=== PATIENT | female | born 1975 | race Caucasian/White ===

== ENCOUNTER → 2016-07-23 | Outpatient (CLI) | payer BC ==
[2016-07-23 09:02] LABS: Basophils % (A) 0 %; CH 30.5; CHCM 33.8; Eosinophils # (A) 0.2 k/uL (0-0.7); Eosinophils % (A) 3 %; HCT 42.4 % (34.0-46.0); HDW 2.64; HGB 14.1 gm/dL (11.4-16.0); Luc # (Auto) 0.21; Luc % (Auto) 3; Lymphocytes # (A) 1.7 k/uL (1.0-4.8); Lymphocytes % (A) 24 %; MCH 30.2 pg (25.0-35.0); MCHC 33.2 g/dL (31.0-37.0); MCV 90.9 fL (80.0-100.0); Mean Platelet Volume 7.4; Monocytes # (A) 0.3 k/uL (0-1.0); Monocytes % (A) 5 %; Neutrophils # (A) 4.7 k/uL (1.3-7.7); Neutrophils % (A) 65 %; RBC 4.67 m/uL (3.80-5.40); RDW 13.6 % (11.5-15.5); WBC 7.2 k/uL (3.8-10.6); WBC (Perox) 7.15
[2016-07-23 10:46] LABS: ALT 38 U/L (9-52); AST 24 U/L (14-36); Alkaline Phosphatase 81 U/L (38-126); Anion Gap 11 mmol/L; Blood Urea Nitrogen 14 mg/dL (7-17); Calcium 9.6 mg/dL (8.4-10.2); Carbon Dioxide 26 mmol/L (22-30); Chloride 105 mmol/L (98-107); Cholesterol 144 mg/dL (<200); Glucose 123 mg/dL (74-99); HDL Cholesterol 54 mg/dL (40-60); Non-African American GFR(MDRD) >60 (>60 ml/min/1.73 sqM); Potassium 4.5 mmol/L (3.5-5.1); Sodium 142 mmol/L (137-145); Total Bilirubin 0.8 mg/dL (0.2-1.3); Total Protein 7.5 g/dL (6.3-8.2); Triglycerides 132 mg/dL (<150)
== END | disposition home or self-care (01) ==
LOC: LABWHC1 08:34
PROVIDERS: ATTEND Physician Assistant Medical
DX: R45.4 Irritability and anger (principal); R07.9 Chest pain, unspecified; R06.00 Dyspnea, unspecified; N94.3 Premenstrual tension syndrome
CPT/HCPCS: 36415; 80053; 80061; 84439; 84443; 85025

== ENCOUNTER → 2016-08-06 | Outpatient (CLI) | payer BC ==
--- NOTE | 2016-08-07 11:19 | ECHOF ---
Referral Reason:R07.9 chest pain R06.00 dyspnea MEASUREMENTS -------- HEIGHT: 175.3 cm WEIGHT: 148.8 kg BP: 134/103 RVIDd: 2.7 cm (< 3.3) IVSd: 1.2 cm (0.6 - 1.1) LVIDd: 3.9 cm (3.9 - 5.3) LVPWd: 1.2 cm (0.6 - 1.1) IVSs: 1.7 cm LVIDs: 2.8 cm LVPWs: 1.6 cm LA Diam: 3.4 cm (2.7 - 3.8) LAESV Index (A-L): 21.70 ml/m Ao Diam: 3.1 cm (2.0 - 3.7) AV Cusp: 2.1 cm (1.5 - 2.6) MV EXCURSION: 14.967 mm (> 18.000) MV EF SLOPE: 46 mm/s (70 - 150) EPSS: 0.4 cm MV E Willam: 1.06 m/s MV DecT: 217 ms MV A Willam: 0.71 m/s MV E/A Ratio: 1.50 RAP: 5.00 mmHg RVSP: 23.28 mmHg FINDINGS -------- Sinus rhythm. This was a technically adequate study. The left ventricular size is normal. There is borderline concentric left ventricular hypertrophy. Overall left ventricular systolic function is normal with, an EF between 60 - 65 %. The right ventricle is normal in size. Normal LA size by volume 22+/-6 ml/m2. The right atrium is normal in size. The aortic valve is trileaflet and appears structurally normal. The mitral valve is normal. Mild tricuspid regurgitation present. Right ventricular systolic pressure is normal at < 35 mmHg. The pulmonic valve was not well visualized. The aortic root size is normal. Normal inferior vena cava with normal inspiratory collapse consistent with estimated right atrial pressure of 5 mmHg. The pericardium is normal. CONCLUSIONS -------- 1. Sinus rhythm. 2. Mild tricuspid regurgitation present. 3. Right ventricular systolic pressure is normal at < 35 mmHg. 4. The pulmonic valve was not well visualized. 5. The aortic root size is normal. 6. Normal inferior vena cava with normal inspiratory collapse consistent with estimated right atrial pressure of 5 mmHg. 7. The pericardium is normal. 8. This was a technically adequate study. 9. The left ventricular size is normal. 10. There is borderline concentric left ventricular hypertrophy. 11. Overall left ventricular systolic function is normal with, an EF between 60 - 65 %. 12. The right ventricle is normal in size. 13. Normal LA size by volume 22+/-6 ml/m2. 14. The aortic valve is trileaflet and appears structurally normal. 15. The mitral valve is normal. [employer] ARCHITECT: Isa Fields RDCS
--- NOTE | 2016-08-07 12:23 | EST ---
DATE OF SERVICE: 08/07/2016 AGE: 40Y SEX: F HT: 69" WT: 328 lbs. Protocol Johnny: X Other: Stress Stage: 1 Dur. of Exercise: 4:08 *Heart Rate Blood Pressure *Rest: 77 Rest: 134/103 * *Max. Achieved: 158 Maximum BP: 168/98 85% PMHR: 153 100% PMHR: 180 *METS: 5.6 INDICATIONS: Chest pain. MEDICATIONS: Prozac. Patient was exercised for a total period of 4 minutes. A peak heart rate of 158 was achieved. Maximum blood pressure of 168/98 mmHg was noted. Resting EKG shows normal sinus rhythm with normal PA interval and QRS duration and normal ST-T waves. No ST segment depression suggestive of ischemia is noted. The patient did not complain of any chest pain during the test. FINAL IMPRESSION: 1. This exercise test is not suggestive of ischemia. 2. Patient's exercise tolerance is below average. 3. No dysrhythmias are noted.
== END | disposition home or self-care (01) ==
LOC: RADNMMAIN 10:58
PROVIDERS: ATTEND Family Medicine
DX: I07.1 Rheumatic tricuspid insufficiency (principal); R06.00 Dyspnea, unspecified
CPT/HCPCS: 93017; 93306

== ENCOUNTER → 2019-12-16 | Outpatient (CLI) | payer BC ==
[2019-12-16 12:11] LABS: Basophils % (A) 0 %; Eosinophils # (A) 0.3 k/uL (0-0.7); Eosinophils % (A) 3 %; HCT 42.6 % (34.0-46.0); HGB 13.6 gm/dL (11.4-16.0); Lymphocytes % (A) 26 %; MCH 28.4 pg (25.0-35.0); MCHC 31.9 g/dL (31.0-37.0); MCV 89.2 fL (80.0-100.0); Mean Platelet Volume 8.4; Monocytes # (A) 0.3 k/uL (0-1.0); Monocytes % (A) 4 %; Neutrophils # (A) 4.9 k/uL (1.3-7.7); Neutrophils % (A) 64 %; Platelet Count 299 k/uL (150-450); RBC 4.78 m/uL (3.80-5.40); RDW 14.1 % (11.5-15.5); WBC 7.6 k/uL (3.8-10.6)
== END | disposition home or self-care (01) ==
LOC: LABPAT 09:12
PROVIDERS: ATTEND Obstetrics & Gynecology
DX: Z01.818 Encounter for other preprocedural examination (principal); N92.0 Excessive and frequent menstruation with regular cycle
CPT/HCPCS: 36415; 85025

== ENCOUNTER 2019-12-21 08:48 | Day surgery (SDC) | payer BC ==
[2019-12-16 13:37] VITALS: BMI 46.2
[~2019-12-21 08:48] MED LIST: DEXAMETHASONE SOD PHOSPHATE 10 MG/ML 1 ML VIAL IV ONE; HYDROmorphone 0.5 MG/0.5 ML SYRINGE IVP PRN; MIDAZOLAM 2 MG/2 ML VIAL IV PRN; ONDANSETRON 4 MG/2 ML VIAL IVP ONE; Pre Op ABX Message 1 EACH MISC MISCELLANE ONE; SCOPOLAMINE 1.5MG/72HR PATCH TRANSDERM ONE
[2019-12-21] MEDS: LACTATED RINGERS 1,000 ML IV SCH ×2 (09:32→10:05)
[2019-12-21] MEDS ORDERED: LIDOCAINE 1% (10MG/ML) FOR IV START INTRADERMA ONE (09:33)
[2019-12-21] MEDS ORDERED: PROPOFOL 10 MG/ML 20 ML VIAL IV ONE (10:07)
[2019-12-21] MEDS ORDERED: LIDOCAINE 1% INJ 10MG/ML (20 ML MDV) ONE (10:07)
[2019-12-21] MEDS ORDERED: KETOROLAC 15 MG/ML 1 ML VIAL ONE (10:07)
[2019-12-21] MEDS ORDERED: fentaNYL (PF) 50 MCG/ML 2 ML AMP ONE (10:07)
[2019-12-21] MEDS ORDERED: MIDAZOLAM 2 MG/2 ML VIAL ONE (10:07)
[2019-12-21] MEDS ORDERED: LIDOCAINE 1%-EPI 1:100,000 20 ML VIAL SUBMUCOSAL ONE ×2 (10:28)
--- NOTE | 2019-12-21 10:50 | P.OP ---
Date of Procedure: 12/21/19 Preoperative Diagnosis: menometrorrhagia Postoperative Diagnosis: menometrorrhagia Procedure(s) Performed: diagnostic hysteroscopy and NovaSure endometrial ablation Anesthesia: MAC Surgeon: Mercy Haas Estimated Blood Loss (ml): 5 IV fluids (ml): 350 Urine output (ml): 100 Condition: stable Disposition: PACU Operative Findings: large nabothian cyst on anterior of the cervix. Exam under anesthetic limited secondary to the patient's body habitus. Hysteroscopy preprocedure was obscured secondary to clot in the uterus. Postprocedure there was majority desiccation of the endometrium however there were areas of the fundus that appeared still vascularized. Procedure is technically difficult secondary to soft tissue dystocia limiting visualization, instrument uterus and angulation. Description of Procedure: after the patient and her were met in the preoperative holding area and all questions were answered, she was taken to the operating room where anesthetic was administered without incident. She was in positioned, prepped and draped in the dorsal high lithotomy position. Bladder was drained for approximately 100 mL of clear urine. Exam under anesthetic was undertaken and the uterus was not readily palpable secondary to body habitus. Single-sided speculum was placed in the vagina however this did not allow for adequate visualization of the cervix. Weighted speculum was then placed and the cervix is visualized. It was grasped anteriorly with a single-tooth tenaculum and a paracervical block with lidocaine plus epinephrine was placed. Of note there was significant soft tissue in the surgical field including large rectocele redundant vulva and overall body habitus. The uterus was sounded to 11 cm and was anteverted. The cervix was sequentially dilated with Hegar dilators to allow for passage of the diagnostic hysteroscope. The hysteroscope was introduced however was difficult visualization secondary to clot and debris and the uterus as well as soft tissue dystocia preventing the anterior angulation of the rigid scope. Visualization was felt to be adequate enough however to proceed with the NovaSure procedure. Hysteroscope was removed and the cervix was further dilated to allow for passage of the NovaSure ablation device. The device was seated with a cavity length of 6.0 cm width of 3.8 cm. Cavity assessment test was passed. Cycle was enabled with a power of 125 W for a cycle time of 60 seconds. Following cessation of the treatment cycle the device was removed. Hysteroscope was reintroduced. There was better visualization however again angulation was difficult secondary to soft tissue. It did appear as though there was the majority desiccated however some areas at the fundus still looked vascular. I do not believe it was possible to reach these areas with the device based on above technical issues discussed. The hysteroscope was then removed and the cervix was observed and no active bleeding was noted instruments removed from the vagina. Patient was awoken from anesthetic without incident and transported recovery area in good condition. All counts reported to me as correct by the operating room staff.
[2019-12-21 11:16] VITALS: TEMP 98
[2019-12-21 11:18] VITALS: RESP 16
[2019-12-21 12:03] VITALS: BP 123/80; PULSE 77
== END 2019-12-21 12:25 | disposition home or self-care (01) ==
LOC: OR 08:48
PROVIDERS: ATTEND Obstetrics & Gynecology
DX: N92.1 Excessive and frequent menstruation with irregular cycle (principal); D25.9 Leiomyoma of uterus, unspecified; E66.9 Obesity, unspecified; K21.9 Gastro-esophageal reflux disease without esophagitis; M19.90 Unspecified osteoarthritis, unspecified site; Z88.0 Allergy status to penicillin; Z88.7 Allergy status to serum and vaccine; Z82.49 Family history of ischemic heart disease and other diseases of the circulatory system; Z68.42 Body mass index [BMI] 45.0-49.9, adult
CPT/HCPCS: 58563; 81025; J2250; J1100; J2405; J2001; J3010; J1885; J2704; J1170

== ENCOUNTER → 2020-05-22 | Outpatient (CLI) | payer BC ==
--- NOTE | 2020-05-22 15:04 | MM ---
Reason for exam: screening (asymptomatic). Last mammogram was performed 4 years and 10 months ago. History: Benign MG stereo VAD BX LT of the left breast, June 14, 2014. US biopsy breast VAD LT of the left breast, November 02, 2013. Physical Findings: A clinical breast exam by your physician is recommended on an annual basis and results should be correlated with mammographic findings. MG Screening Mammo w CAD Bilateral CC and MLO view(s) were taken. Prior study comparison: July 19, 2015, bilateral MG 3d diag mammo w/cad [facility]. December 07, 2014, left breast MG diagnostic mammo LT w CAD. There are scattered fibroglandular densities. Finding: There is a 10 mm obscured mass in the middle, central position of the right breast CC view only. Previous mammotome biopsy in the left breast x 3. There is a chronic nodularity in the left breast. ASSESSMENT: Incomplete: need additional imaging evaluation, BI-RAD 0 RECOMMENDATION: Special view mammogram of the right breast. If lesion persists on supplemental views, image directed ultrasound is recommended. [facility] will attempt to contact patient to return for supplemental views and ultrasound if indicated.
== END | disposition home or self-care (01) ==
LOC: RADMAMWWP 09:25
PROVIDERS: ATTEND Family Medicine
DX: Z12.31 Encounter for screening mammogram for malignant neoplasm of breast (principal)
CPT/HCPCS: 77067

== ENCOUNTER → 2020-05-31 | Outpatient (CLI) | payer BC ==
--- NOTE | 2020-05-31 13:32 | MM ---
Reason for exam: additional evaluation requested from abnormal screening. Last mammogram was performed less than 1 month ago. History: Benign MG stereo VAD BX LT of the left breast, June 14, 2014. US biopsy breast VAD LT of the left breast, November 02, 2013. Physical Findings: Nurse did not find any significant physical abnormalities on exam. MG 3D Work Up W/Cad RT CC and MLO view(s) were taken of the right breast. Prior study comparison: May 22, 2020, bilateral MG screening mammo w CAD. July 19, 2015, bilateral MG 3d diag mammo w/cad [facility]. Finding: There is a 6 mm equal density (isodense), circumscribed oval mass located 8 cm from the nipple in the 12 o'clock middle position of the right breast. New finding since July 19, 2015 and May 22, 2020. These results were verbally communicated with the patient and result sheet given to the patient on 05/31/20. ASSESSMENT: Incomplete: need additional imaging evaluation, BI-RAD 0 RECOMMENDATION: Ultrasound of the right breast.
--- NOTE | 2020-05-31 13:35 | USB ---
Reason for exam: additional evaluation requested from abnormal screening. History: Benign MG stereo VAD BX LT of the left breast, June 14, 2014. US biopsy breast VAD LT of the left breast, November 02, 2013. US Breast Workup Limited RT Right limited breast ultrasound including focal area of concern, retroareolar and axilla demonstrates a 0.7 x 0.7 x 0.6cm oval, hypoechoic lesion at 12 o'clock. These results were verbally communicated with the patient and result sheet given to the patient on 05/31/20. ASSESSMENT: Suspicious, BI-RAD 4 RECOMMENDATION: Ultrasound core biopsy of the right breast. (12 o'clock, stereotactic core biopsy if not seen on follow up ultrasound) Called Dr. Lozano's office with mammographic findings and has scheduled an appointment for the patient for 06/16/20 at 11:[address] Gilliam. Biopsy scheduled for 06/21/20 at 10:30. PRELIMINARY REPORT CALLED AND FAXED TO DR. GILLIAM ON 05/31/20.
== END | disposition home or self-care (01) ==
LOC: RADMAMWWP 10:20
PROVIDERS: ATTEND Family Medicine
DX: R92.8 Other abnormal and inconclusive findings on diagnostic imaging of breast (principal)
CPT/HCPCS: 77061; 77065

== ENCOUNTER → 2020-06-16 | Outpatient (CLI) | payer BC ==
[2020-06-16 11:11] VITALS: BP 163/97; PULSE 85; RESP 18; TEMP 98.1
--- NOTE | 2020-06-16 11:35 | P.GSHP ---
History of Present Illness H&P Date: 06/16/20 Chief Complaint: abnormal ultrasound of the right breast Tiny is a 44 year old white female seen in consultation for Dr. Fatoumata Chavez regarding an ultrasound abnormality of the left breast. She had a bilateral mammogram performed on 3820. Last mammogram prior to this was 10 years ago. This most recent mammogram revealed a 10 mm isodense mass in the middle central position of the right breast. The patient had had a previous Mammotome biopsy in the left breast 2 which was always benign. She had recommendation for a diagnostic right breast mammogram. This was performed on . This revealed a 6 mm isodense mass located in the 12 o'clock position of the right breast. An ultrasound was recommended. An ultrasound was performed on the same date and the lesion was seen on ultrasound. Recommendation was for ultrasound-guided core biopsy of the right breast. Tiny does not feel any lumps masses or nodules in either breast. These were findings on a routine mammogram. She is not complaining of any pain in the breast. She is not complaining of any nipple discharge or skin changes. She has had stereotactic core biopsy twice of the left breast which was benign. It is not complaining of any pain in her breast. She has not had any recent trauma or infection in her breast. Caffeine: 2 cups coffe/day; 2 cans of pop/day nicotine: none chocolate: none Family history: none Hormonal History: menarche: 13 , breast fed: no, age at first : 17 periods regular: last period June 13 BCP: none Surgical History: hip two knee scopes uterine ablation Medical History: none Social History: nicotine: none alcohol: occasional drugs: none - Constitutional Constitutional: Reports sweats - EENT Eyes: denies blurred vision, denies pain Ears: deny: decreased hearing, tinnitus Ears, nose, mouth and throat: Denies headache, Denies sore throat - Breasts Breasts: bilateral: as per HPI - Cardiovascular Cardiovascular: Denies chest pain, Denies shortness of breath - Respiratory Respiratory: Denies cough, Denies 7 - Gastrointestinal Gastrointestinal: Denies abdominal pain, Denies diarrhea, Denies nausea, Denies vomiting - Genitourinary (Female) Genitourinary: Denies dysuria, Denies hematuria - Menstruation Menstruation: Reports period normal - Musculoskeletal Musculoskeletal: Reports myalgias - Integumentary Integumentary: Denies pruritus, Denies rash - Neurological Neurological: Denies numbness, Denies weakness - Psychiatric Psychiatric: Denies anxiety, Denies depression - Endocrine Endocrine: Denies fatigue, Denies weight change - Hematologic/Lymphatic Comment: none - Allergic/Immunologic Allergic/Immunologic: Reports as per HPI Past Medical History History of Any Multi-Drug Resistant Organisms: None Reported Smoking Status: Never smoker Medications and Allergies Home Medications Medication Instructions Recorded Confirmed Type Ascorbic Acid [Vitamin C] 500 mg PO DAILY 06/16/20 06/16/20 History Allergies Allergy/AdvReac Type Severity Reaction Status Date / Time Penicillins Allergy Rash/Hives Verified 06/16/20 11:07 Tetanus Vaccines and Toxoid Allergy Swelling Verified 06/16/20 11:07 Surgical - Exam Vital Signs Temp Pulse Resp BP Pulse Ox 98.1 F 85 18 163/97 100 06/16/20 11:08 06/16/20 11:08 06/16/20 11:08 06/16/20 11:08 06/16/20 11:08 BMI 52.3 - General well developed, well nourished, no distress - Eyes normal ocular movement - ENT normal pinna, normal nares - Neck no masses, trachea midline - Respiratory normal respiratory effort, clear to auscultation - Cardiovascular Rhythm: regular Heart Sounds: normal: S1, S2 - Abdomen Abdomen: soft, non tender, no guarding, no rigid, no rebound - Integumentary normal turgor - Neurologic no disoriented, no combative - Musculoskeletal normal gait, normal posture - Psychiatric oriented to time, oriented to person, oriented to place, speech is normal, memory intact breast exam: BRA: 42B inspection: grade 3 ptosis bilateral Palpation: Right breast: Multi-positional exam fibrocystic changes no dominant masses or nodules of concern, right breast slightly larger than left breast Right axilla: No adenopathy of concern Left breast: Multiple positional exam fibrocystic changes, no dominant masses or nodules of concern Left axilla: No adenopathy of concern Results Mammogram and ultrasound results reviewed independently with radiology Assessment and Plan Assessment: Impression: 1. Radiographic abnormality right breast/ultrasound revealing 0.7 x 0.7 cm lesion at 12:00 2. Fibrocystic breast changes 3. Slight asymmetry of the breast 4. Caffeine intake discussed with the patient she will consider modification of her lifestyle Plan: 1. Ultrasound-guided core biopsy of the right breast 2. Follow-up after ultrasound-guided core biopsy 3. Patient is going to consider decrease caffeine intake Risks and benefits of the procedure discussed with the patient she understands and wishes to proceed risk include but are not limited to bleeding, infection, reaction to the anesthetic. Additionally there is a possibility that the lesion could be metastatic could be discordant in which case it might be recommended that an open biopsy be performed. Cc: Dr. Fatoumata Chavez
== END ==
LOC: WWCWWP 11:01
PROVIDERS: ATTEND Surgery
DX: N60.11 Diffuse cystic mastopathy of right breast (principal); N60.12 Diffuse cystic mastopathy of left breast

== ENCOUNTER → 2020-06-21 | Day surgery (SDC) | payer BC ==
[2020-06-21 10:09] VITALS: BP 135/82; RESP 12; TEMP 98.5
--- NOTE | 2020-06-21 11:38 | USB ---
Discontinued core biopsy right breast HISTORY: Previous abnormal The region questioned at the right 12:00 position zone B-C was attempted to be localized sonographica lly. Sonographically the area of interest was very difficult to visualize and identified much better on mammography. Therefore ultrasound-guided core biopsy was discontinued. Recommendation is for stere otactic core biopsy of the right breast lesion. This was discussed with the patient. IMPRESSION: Suspicious abnormality BI-RADS 4 Recommendation: Stereotactic core biopsy right breast
== END ==
LOC: RADUSWWP 09:44
PROVIDERS: ATTEND Surgery
DX: R92.8 Other abnormal and inconclusive findings on diagnostic imaging of breast (principal); Z53.9 Procedure and treatment not carried out, unspecified reason

== ENCOUNTER → 2020-08-03 | Outpatient (CLI) | payer BC ==
[2020-08-03 08:46] VITALS: BP 134/101; PULSE 73; RESP 18; TEMP 98
--- NOTE | 2020-08-03 09:21 | P.PN ---
Subjective Progress Note Date: 08/03/20 Principal diagnosis: stero biopsy results Tiny is a 44 year old white female status post stereotactic core biopsy done at [facility] [place] [id number]. Pathology revealed this tissue with fibrocystic and fibroadenomatoid change with areas of myxoid stroma and fibrous stroma. The films were reviewed with Dr. Romo from radiology. It is felt that the area of concern was most likely sampled and that this is benign specific. The patient tolerated the procedure with no difficulty. Objective - Vital Signs Vital signs: Vital Signs Temp 98.0 F 08/03/20 08:40 Pulse 73 08/03/20 08:40 Resp 18 08/03/20 08:40 BP 134/101 08/03/20 08:40 Pulse Ox 98 08/03/20 08:40 Intake & Output 08/02/20 08/03/20 08/03/20 18:59 06:59 18:59 Weight 146.964 kg - Constitutional General appearance: Present: morbidly obese - EENT Eyes: Present: EOMI ENT: Present: hearing grossly normal - Neck Neck: Present: normal ROM - Respiratory Respiratory: bilateral: CTA - Cardiovascular Rhythm: regular Heart sounds: normal: S1, S2 - Integumentary Integumentary Comment(s): Mild ecchymosis at biopsy site Integumentary: Present: normal turgor - Musculoskeletal Musculoskeletal: Present: gait normal - Psychiatric Psychiatric: Present: A&O x's 3, appropriate affect, intact judgment & insight Assessment and Plan Assessment: Impression/Plan: 1. Radiographic abnormality right breast/attempted ultrasound-guided biopsy canceled and patient scheduled for stereotactic core biopsy [facility]. The patient's stereotactic core biopsy was benign fibrocystic breast changes. This was reviewed with radiology and felt to be benign and concordant. To be cautious we will repeat an ultrasound of the right breast in 3 months and a repeat mammogram and ultrasound in 6 months. She will follow up examination after the ultrasound. Cc: Dr. Fatoumata Lozano encounter 25 minutes, time spent in reviewing records, physical examination, and counseling.
== END ==
LOC: WWCWWP 08:32
PROVIDERS: ATTEND Surgery
DX: N60.11 Diffuse cystic mastopathy of right breast (principal); Z88.0 Allergy status to penicillin; Z88.7 Allergy status to serum and vaccine

== ENCOUNTER → 2020-11-16 | Outpatient (CLI) | payer BC ==
--- NOTE | 2020-11-17 10:53 | MM ---
Reason for exam: follow-up at short interval from prior study. Last mammogram was performed 6 months ago. History: US discontinued breast bx RT of the right breast, June 21, 2020. Benign MG stereo VAD BX LT of the left breast, June 14, 2014. US biopsy breast VAD LT of the left breast, November 02, 2013. Physical Findings: Nurse did not find any significant physical abnormalities on exam. MG 3D Diag Mammo W/Cad RT CC and MLO view(s) were taken of the right breast. Prior study comparison: July 27, 2020, mammogram, performed at [facility]. There are scattered fibroglandular densities. No significant new findings when compared with previous films. These results were verbally communicated with the patient and result sheet given to the patient on 11/16/20. ASSESSMENT: Benign, BI-RAD 2 RECOMMENDATION: Ultrasound core biopsy of the right breast. Called office with mammographic findings and has scheduled an appointment for the patient for 12/08/20 at 4:[address] Gilliam. Biopsy scheduled for 11/29/20 at 1:00/ PRELIMINARY REPORT CALLED AND FAXED TO DR. GILLIAM ON 11/17/20.
--- NOTE | 2020-11-17 10:55 | USB ---
Reason for exam: follow-up at short interval from prior study. History: US discontinued breast bx RT of the right breast, June 21, 2020. Benign MG stereo VAD BX LT of the left breast, June 14, 2014. US biopsy breast VAD LT of the left breast, November 02, 2013. US Breast Limited RT Technologist: Isidra Dale Right limited breast ultrasound including focal area of concern, retroareolar and axilla demonstrates a 0.9 x 0.7 x 0.3cm mixed lesion at 12 o'clock, biopsy recommended. These results were verbally communicated with the patient and result sheet given to the patient on 11/16/20. ASSESSMENT: Suspicious, BI-RAD 4 RECOMMENDATION: Ultrasound core biopsy of the right breast. 12 o'clock Called office with mammographic findings and has scheduled an appointment for the patient for 12/08/20 at 4:[address] Gilliam. Biopsy scheduled for 11/29/20 at 1:00. PRELIMINARY REPORT CALLED AND FAXED TO DR. GILLIAM ON 11/17/20.
== END | disposition home or self-care (01) ==
LOC: RADMAMWWP 13:26
PROVIDERS: ATTEND Surgery
DX: R92.8 Other abnormal and inconclusive findings on diagnostic imaging of breast (principal)
CPT/HCPCS: 77061; 77065

== ENCOUNTER → 2020-11-28 | Outpatient (CLI) | payer BC ==
[2020-11-29 22:08] LABS: African American GFR (CKD) 103.2 (60.0-200.0); Albumin 4.7 g/dL (3.80-4.90); Albumin/Globulin Ratio 1.68 (1.60-3.17); Anion Gap 16.6 mmol/L (4.00-12.00); Calcium 9.3 mg/dL (8.7-10.3); Carbon Dioxide 20.4 mmol/L (21.6-31.8); Globulin 2.8 g/dL (1.6-3.3); Potassium 4.5 mmol/L (3.5-5.5); Total Bilirubin 0.4 mg/dL (0.3-1.2); Total Protein 7.5 g/dL (6.2-8.2)
[2020-11-29 22:17] LABS: Estradiol 23.6 pg/mL; Follicle Stimulating Hormone 6.3 mIU/mL; Luteinizing Hormone 2.3 mIU/mL
== END | disposition home or self-care (01) ==
LOC: LABWHC1 11:04
PROVIDERS: ATTEND Physician Assistant Medical
DX: Z13.228 Encounter for screening for other metabolic disorders (principal); E66.01 Morbid (severe) obesity due to excess calories; N94.6 Dysmenorrhea, unspecified; N95.9 Unspecified menopausal and perimenopausal disorder
CPT/HCPCS: 36415; 80053; 82670; 83001; 83002; 84144; 84443; 85025

== ENCOUNTER → 2020-11-29 | Day surgery (SDC) | payer BC ==
[2020-11-29 12:07] VITALS: BP 149/77; PULSE 84; RESP 16; TEMP 98.2
--- NOTE | 2020-11-29 13:33 | USB ---
EXAMINATION TYPE: US discontinued breast core RT DATE OF EXAM: 11/29/2020 CLINICAL HISTORY: R92.8, ABN MAMM. TECHNIQUE: Real-time sector scanning sonography is performed over the right breast with attention to the prior ultrasound abnormality. Real-time observation and real-time scanning was performed. COMPARISON: 11/16/2020 ultrasound and mammogram FINDINGS: The ultrasound guided core biopsy procedure was explained to the patient. The risks, benef its, alternatives were discussed. An informed consent was then obtained. Timeout was performed. The patient was placed in supine positioning for imaging and for the procedure. The overlying skin w as prepped with betadine and sterilely draped in usual sterile fashion. Scanning was performed in pre paration for the core biopsy. On close examination, there appears to be a duct within this region. No intraluminal abnormalities id entified. Tissue identified appears to all relate to normal parenchymal tissue adjacent. Scanning int o the region gives an appearance of a filling defect in a single plane, however the orthogonal view d emonstrates this to be extraluminal parenchymal tissue. No suspicious ultrasound abnormality is ident ified. Core marker from prior stereotactic core biopsy may have been identified during real-time scan nicole in this region. Findings were discussed with the patient. Precautionary 6 month follow-up ultrasound can be performed . Patient advised to continue monthly self breast examinations and report any changes in clinical fin dings. IMPRESSION: 1. Probably benign findings. 2. BI-RADS 3 Recommendations: 1. Follow-up right breast precautionary ultrasound 6 months. 2. Patient should continue monthly self breast exam. 3. Clinical management of any clinical findings.
== END ==
LOC: RADUSWWP 11:56
PROVIDERS: ATTEND Surgery
DX: R92.8 Other abnormal and inconclusive findings on diagnostic imaging of breast (principal); Z53.8 Procedure and treatment not carried out for other reasons

== ENCOUNTER → 2020-12-29 | Outpatient (CLI) | payer BC ==
--- NOTE | 2020-12-29 15:47 | US ---
EXAMINATION TYPE: US pelvis complete transvag DATE OF EXAM: 12/29/2020 COMPARISON: NONE CLINICAL HISTORY: N94.6 Dysmenorrhea. painful, heavy periods with history of ablation, TECHNIQUE: TA/TV. Transabdominal sonographic images of the pelvis were acquired. Transvaginal sono graphic images Date of LMP: 12/22/2020 EXAM MEASUREMENTS: Uterus: 14.7 x 8.8 x 8.8 cm Endometrial Stripe: 1.0 cm Right Ovary: 3.5 x 2.5 x 2.0 cm Left Ovary: 3.7 x 3.3 x 2.5 cm 1. Uterus: Anteverted enlarged, heterogeneous uterus with multiple fibroids, Largest = 5.8 x 4.9 x 5.7cm, second largest = 2.7 x 3.0 x 2.7cm 2. Endometrium: wnl 3. Right Ovary: wnl 4. Left Ovary: 2.4 x 2.0 x 2.1cm 5. Bilateral Adnexa: wnl 6. Posterior cul-de-sac: wnl transvaginal assessment limited due to enlarged shadowing UT, transabdominal views visualized fibro ids better. Heterogeneous anteverted uterus with isoechoic intramural fibroids marked on transvaginal imaging in cluding one 5.8 cm subserosal in location causing lobulated contour IMPRESSION: Intrauterine fibroids are present.
== END | disposition home or self-care (01) ==
LOC: RADUSWWP 14:20
PROVIDERS: ATTEND Family Medicine
DX: D25.9 Leiomyoma of uterus, unspecified (principal)
CPT/HCPCS: 76830; 76856

== ENCOUNTER → 2021-01-05 | Outpatient (CLI) | payer BC ==
[2021-01-05 16:22] LABS: Basophils # (A) 0.03 X 10*3/uL (0.00-0.10); Basophils % (A) 0.4 %; Eosinophils # (A) 0.19 X 10*3/uL (0.04-0.35); Eosinophils % (A) 2.8 %; HCT 42.4 % (37.2-46.3); HGB 13.8 g/dL (12.0-15.0); Lymphocytes # (A) 1.78 X 10*3/uL (0.90-5.00); Lymphocytes % (A) 26.1 %; MCH 30.3 pg (27.0-32.0); MCHC 32.5 g/dL (32.0-37.0); MCV 93.2 fL (80.0-97.0); Mean Platelet Volume 11.3 fL (9.5-12.2); Monocytes # (A) 0.42 X 10*3/uL (0.20-1.00); Monocytes % (A) 6.1 %; Neutrophils % (A) 64.5 %; Platelet Count 273 X 10*3/uL (140-440); RBC 4.55 X 10*6/uL (4.10-5.20); RDW 13.1 % (11.5-14.5); WBC 6.83 X 10*3/uL (4.50-10.00)
[2021-01-05 17:26] LABS: Chol/HDL Ratio 3.16 Ratio; HDL Cholesterol 47.1 mg/dL (40.00-60.00); LDL Cholesterol,Calculated 72.3 mg/dL (0.0-131.0); VLDL Calculation 29.6 mg/dL (5.00-40.00)
== END | disposition home or self-care (01) ==
LOC: LABWHC1 09:23
PROVIDERS: ATTEND Physician Assistant Medical
DX: Z00.01 Encounter for general adult medical examination with abnormal findings (principal); Z13.220 Encounter for screening for lipoid disorders; N92.0 Excessive and frequent menstruation with regular cycle; N94.6 Dysmenorrhea, unspecified
CPT/HCPCS: 36415; 80061; 85025

== ENCOUNTER 2021-02-09 15:48 | Inpatient (IN) | payer BC ==
[2021-02-09] MEDS ORDERED: ACETAMINOPHEN TAB 500 MG TAB PO STA (16:13)
--- NOTE | 2021-02-09 16:15 | ED ---
General Adult HPI - General Chief complaint: Shortness of Breath Stated complaint: SOB Time Seen by Provider: 02/09/21 15:50 Source: patient, EMS Mode of arrival: EMS Limitations: no limitations - History of Present Illness Initial comments: Dictation was produced using SideStep dictation software. please excuse any grammatical, word or spelling errors. Chief Complaint: 45-year-old obese female presents to the emergency department for poor appetite History of Present Illness: Patient is a 45-year-old female presents to the emergency department for poor appetite, shortness of breath. She initially went to the urgent care today. She was then brought to the emergency department via EMS. Patient states that she's been elbowed unable to eat for the last 1-2 weeks. She reports having fevers at home. Patient instructed by EMS. She was found have fever hypoxia. Given a breathing treatment by EMS to treating shortness of breath. Patient states she feels wheezy. The ROS documented in this emergency department record has been reviewed and confirmed by me. Those systems with pertinent positive or negative responses have been documented in the HPI. All other systems are other negative and/or noncontributory. PHYSICAL EXAM: General Impression: Alert and oriented x3, not in acute distress HEENT: Normocephalic atraumatic, extra-ocular movements intact, pupils equal and reactive to light bilaterally, mucous membranes moist. Cardiovascular: Heart regular rate and rhythm Chest: Able to complete full sentences, no retractions, no tachypnea, mild diffuse lung crackles Abdomen: abdomen soft, non-tender, non-distended, no organomegaly Musculoskeletal: Pulses present and equal in all extremities, no peripheral edema Motor: no focal deficits noted Neurological: CN II-XII grossly intact, no focal motor or sensory deficits noted Skin: Intact with no visualized rashes Psych: Normal affect and mood ED course: 45-year-old obese female presents to the emergency Department for hypoxia, fevers shortness of breath and poor appetite. Vital signs upon arrival shows temperature 101.4, heart rate of 11, 88% on room air. Normal blood pressure. Abdomen evaluation obtained. CBC unremarkable. White count is negative. D- dimer 0.88. Metabolic panel is negative. Cardiac labs are negative. Coronal virus rapid is negative. Chest x-ray shows upon her edema versus heart failure or RDS. Patient had elevated d-dimer CT angios the chest was ordered. CT angios shows no pulmonary embolism but there is a period patchy bilateral pneumonia. Patient has no white count. There is concern of viral pneumonia. Nonetheless patient given antibiotics, Decadron. Patient requiring supplement oxygen. Patient be admitted with consultation to pulmonology. EKG interpretation: Ventricular rate 94, normal sinus rhythm, MI interval 162, QRS 80, QTc 4:30. No MI prolongation, no QTC prolongation, no ST or T-wave westley nges noted. Overall, this EKG is unremarkable - Related Data Home Medications Medication Instructions Recorded Confirmed No Known Home Medications 02/09/21 02/09/21 Allergies Allergy/AdvReac Type Severity Reaction Status Date / Time Penicillins Allergy Rash/Hives Verified 02/09/21 17:39 Tetanus Vaccines and Toxoid Allergy Swelling Verified 02/09/21 17:39 Review of Systems ROS Statement: Those systems with pertinent positive or pertinent negative responses have been documented in the HPI. ROS Other: All systems not noted in ROS Statement are negative. Past Medical History Past Medical History: No Reported History History of Any Multi-Drug Resistant Organisms: None Reported Past Surgical History: Ablation, Breast Surgery, Orthopedic Surgery Additional Past Surgical History / Comment(s): left hip surgery age 4, 2 scopes left knee, 2 benign breast biopsies left breast right breast biopsy benign? Past Anesthesia/Blood Transfusion Reactions: No Reported Reaction Past Psychological History: No Psychological Hx Reported Smoking Status: Never smoker Past Alcohol Use History: None Reported Past Drug Use History: None Reported General Exam Limitations: no limitations Course Vital Signs 02/09/21 02/09/21 02/09/21 15:51 15:56 16:02 Temperature 101.4 F H Pulse Rate 101 H Respiratory 20 22 Rate Blood Pressure 130/72 O2 Sat by Pulse 85 L 88 L Oximetry Medical Decision Making - Lab Data Result diagrams: 02/09/21 17:48 02/09/21 16:45 Lab Results 02/09/21 02/09/21 02/09/21 Range/Units 16:45 16:45 16:45 WBC (3.8-10.6) k/uL RBC (3.80-5.40) m/uL Hgb (11.4-16.0) gm/dL Hct (34.0-46.0) % MCV (80.0-100.0) fL MCH (25.0-35.0) pg MCHC (31.0-37.0) g/dL RDW (11.5-15.5) % Plt Count (150-450) k/uL MPV Neutrophils % % Lymphocytes % % Monocytes % % Eosinophils % % Basophils % % Neutrophils # (1.3-7.7) k/uL Lymphocytes # (1.0-4.8) k/uL Monocytes # (0-1.0) k/uL Eosinophils # (0-0.7) k/uL Basophils # (0-0.2) k/uL PT 10.8 (9.0-12.0) sec INR 1.0 (<1.2) APTT 23.3 (22.0-30.0) sec D-Dimer 0.88 H (<0.60) mg/L FEU Sodium 137 (137-145) mmol/L Potassium 3.4 L (3.5-5.1) mmol/L Chloride 98 (98-107) mmol/L Carbon Dioxide 28 (22-30) mmol/L Anion Gap 11 mmol/L BUN 10 (7-17) mg/dL Creatinine 0.72 (0.52-1.04) mg/dL Est GFR (CKD-EPI)AfAm >90 (>60 ml/min/1.73 sqM) Est GFR (CKD-EPI)NonAf >90 (>60 ml/min/1.73 sqM) Glucose 131 H (74-99) mg/dL Plasma Lactic Acid Acosta (0.7-2.0) mmol/L Calcium 8.7 (8.4-10.2) mg/dL Magnesium 2.3 (1.6-2.3) mg/dL Total Bilirubin 0.8 (0.2-1.3) mg/dL AST 81 H (14-36) U/L ALT 50 H (4-34) U/L Alkaline Phosphatase 71 (38-126) U/L Troponin I <0.012 (0.000-0.034) ng/mL NT-Pro-B Natriuret Pep pg/mL Total Protein 7.4 (6.3-8.2) g/dL Albumin 3.8 (3.5-5.0) g/dL Coronavirus (PCR) (Not Detectd) 02/09/21 02/09/21 02/09/21 Range/Units 16:45 17:48 17:48 WBC 5.2 (3.8-10.6) k/uL RBC 4.88 (3.80-5.40) m/uL Hgb 14.5 (11.4-16.0) gm/dL Hct 42.9 (34.0-46.0) % MCV 87.9 (80.0-100.0) fL MCH 29.6 (25.0-35.0) pg MCHC 33.7 (31.0-37.0) g/dL RDW 13.0 (11.5-15.5) % Plt Count 197 (150-450) k/uL MPV 9.7 Neutrophils % 76 % Lymphocytes % 18 % Monocytes % 4 % Eosinophils % 1 % Basophils % 0 % Neutrophils # 3.9 (1.3-7.7) k/uL Lymphocytes # 0.9 L (1.0-4.8) k/uL Monocytes # 0.2 (0-1.0) k/uL Eosinophils # 0.0 (0-0.7) k/uL Basophils # 0.0 (0-0.2) k/uL PT (9.0-12.0) sec INR (<1.2) APTT (22.0-30.0) sec D-Dimer (<0.60) mg/L FEU Sodium (137-145) mmol/L Potassium (3.5-5.1) mmol/L Chloride (98-107) mmol/L Carbon Dioxide (22-30) mmol/L Anion Gap mmol/L BUN (7-17) mg/dL Creatinine (0.52-1.04) mg/dL Est GFR (CKD-EPI)AfAm (>60 ml/min/1.73 sqM) Est GFR (CKD-EPI)NonAf (>60 ml/min/1.73 sqM) Glucose (74-99) mg/dL Plasma Lactic Acid Acosta 1.2 (0.7-2.0) mmol/L Calcium (8.4-10.2) mg/dL Magnesium (1.6-2.3) mg/dL Total Bilirubin (0.2-1.3) mg/dL AST (14-36) U/L ALT (4-34) U/L Alkaline Phosphatase (38-126) U/L Troponin I (0.000-0.034) ng/mL NT-Pro-B Natriuret Pep pg/mL Total Protein (6.3-8.2) g/dL Albumin (3.5-5.0) g/dL Coronavirus (PCR) Not Detected (Not Detectd) 02/09/21 Range/Units 17:48 WBC (3.8-10.6) k/uL RBC (3.80-5.40) m/uL Hgb (11.4-16.0) gm/dL Hct (34.0-46.0) % MCV (80.0-100.0) fL MCH (25.0-35.0) pg MCHC (31.0-37.0) g/dL RDW (11.5-15.5) % Plt Count (150-450) k/uL MPV Neutrophils % % Lymphocytes % % Monocytes % % Eosinophils % % Basophils % % Neutrophils # (1.3-7.7) k/uL Lymphocytes # (1.0-4.8) k/uL Monocytes # (0-1.0) k/uL Eosinophils # (0-0.7) k/uL Basophils # (0-0.2) k/uL PT (9.0-12.0) sec INR (<1.2) APTT (22.0-30.0) sec D-Dimer (<0.60) mg/L FEU Sodium (137-145) mmol/L Potassium (3.5-5.1) mmol/L Chloride (98-107) mmol/L Carbon Dioxide (22-30) mmol/L Anion Gap mmol/L BUN (7-17) mg/dL Creatinine (0.52-1.04) mg/dL Est GFR (CKD-EPI)AfAm (>60 ml/min/1.73 sqM) Est GFR (CKD-EPI)NonAf (>60 ml/min/1.73 sqM) Glucose (74-99) mg/dL Plasma Lactic Acid Acosta (0.7-2.0) mmol/L Calcium (8.4-10.2) mg/dL Magnesium (1.6-2.3) mg/dL Total Bilirubin (0.2-1.3) mg/dL AST (14-36) U/L ALT (4-34) U/L Alkaline Phosphatase (38-126) U/L Troponin I (0.000-0.034) ng/mL NT-Pro-B Natriuret Pep 36 pg/mL Total Protein (6.3-8.2) g/dL Albumin (3.5-5.0) g/dL Coronavirus (PCR) (Not Detectd) Critical Care Time Critical Care Time: Yes Total Critical Care Time: 33 Disposition Clinical Impression: Adult RDS Disposition: ADMITTED IP TO THIS HOSP Condition: Fair Referrals: Fatoumata Lozano MD [Primary Care Provider] - 1-2 days
[2021-02-09 17:24] LABS: ALT 50 U/L (4-34); AST 81 U/L (14-36); African American GFR (CKD) >90 (>60 ml/min/1.73 sqM); Albumin 3.8 g/dL (3.5-5.0); Alkaline Phosphatase 71 U/L (38-126); Anion Gap 11 mmol/L; Blood Urea Nitrogen 10 mg/dL (7-17); Calcium 8.7 mg/dL (8.4-10.2); Carbon Dioxide 28 mmol/L (22-30); Chloride 98 mmol/L (98-107); Glucose 131 mg/dL (74-99); Magnesium 2.3 mg/dL (1.6-2.3); Non-African American GFR(CKD) >90 (>60 ml/min/1.73 sqM); Potassium 3.4 mmol/L (3.5-5.1); Sodium 137 mmol/L (137-145); Total Bilirubin 0.8 mg/dL (0.2-1.3); Total Protein 7.4 g/dL (6.3-8.2)
[2021-02-09 17:28] LABS: Partial Thromboplastin Time 23.3 sec (22.0-30.0); Prothrombin Time 10.8 sec (9.0-12.0)
--- NOTE | 2021-02-09 17:55 | XR ---
EXAMINATION TYPE: XR chest 1V portable DATE OF EXAM: 02/09/2021 COMPARISON: NONE HISTORY: Short of breath TECHNIQUE: Single view FINDINGS: Portable exam shows some pulmonary interstitial and airspace edema. There is poor inspirati on. Bony thorax is intact. IMPRESSION: Pulmonary edema that could be acute heart failure or developing RDS.
[2021-02-09 18:00] LABS: Basophils % (A) 0 %; Eosinophils % (A) 1 %; HCT 42.9 % (34.0-46.0); HGB 14.5 gm/dL (11.4-16.0); Lymphocytes # (A) 0.9 k/uL (1.0-4.8); Lymphocytes % (A) 18 %; MCH 29.6 pg (25.0-35.0); MCHC 33.7 g/dL (31.0-37.0); MCV 87.9 fL (80.0-100.0); Mean Platelet Volume 9.7; Monocytes # (A) 0.2 k/uL (0-1.0); Monocytes % (A) 4 %; Neutrophils # (A) 3.9 k/uL (1.3-7.7); Neutrophils % (A) 76 %; Platelet Count 197 k/uL (150-450); RBC 4.88 m/uL (3.80-5.40); WBC 5.2 k/uL (3.8-10.6)
[2021-02-09] MEDS ORDERED: DEXAMETHASONE SOD PHOSPHATE 10 MG/ML 1 ML VIAL IV STA (18:46)
--- NOTE | 2021-02-09 19:00 | CT ---
EXAMINATION TYPE: CT angio chest DATE OF EXAM: 02/09/2021 COMPARISON: None HISTORY: Shortness of breath with positive d-dimer. CT DLP: 613.3 mGycm Automated exposure control for dose reduction was used. CONTRAST: Performed with IV Contrast, patient injected with 100 mL of Isovue 370. Images obtained from the thoracic inlet to the diaphragm with IV contrast. There are 3-D post process ed images. There is some patchy interstitial and airspace infiltrate throughout both lungs. There is no mediasti nal adenopathy. Thoracic aorta is intact. There is no aneurysm or dissection. Ascending aorta measure s 3.4 cm. There is no evidence of filling defect in the pulmonary arteries. There are no hilar masses . Bony thorax is intact. IMPRESSION: No evidence of pulmonary embolism. Patchy bilateral pneumonia. Pneumonia appears new compared to 2013 exam.
[2021-02-09] MEDS ORDERED: NALOXONE 0.4 MG/ML 1 ML VIAL IV PRN (19:46)
[2021-02-09] MEDS ORDERED: ACETAMINOPHEN TAB 325 MG TAB PO PRN (19:46)
[2021-02-10] MEDS: SODIUM CHLORIDE 0.9% 1,000 ML IV SCH ×2 (04:45→23:31)
[2021-02-10] MEDS: ZINC SULFATE 220 MG CAP PO SCH (08:51)
[2021-02-10] MEDS: CHOLECALCIFEROL 25 MCG (1000 IU) TABLET PO SCH (08:51)
[2021-02-10] MEDS: ASCORBIC ACID 500 MG TAB PO SCH (08:51)
[2021-02-10] MEDS: ENOXAPARIN 40 MG/0.4 ML SYRINGE SQ SCH (08:51)
[2021-02-10 10:01] LABS: ALT 50 U/L (4-34); AST 63 U/L (14-36); African American GFR (CKD) >90 (>60 ml/min/1.73 sqM); Albumin/Globulin Ratio 1.1; Alkaline Phosphatase 71 U/L (38-126); Anion Gap 11 mmol/L; Bilirubin,Unconjugated 0.3 mg/dL (0.0-1.1); Blood Urea Nitrogen 15 mg/dL (7-17); C Reactive Protein 5.4 mg/dL (<1.0); Calcium 8.8 mg/dL (8.4-10.2); Carbon Dioxide 26 mmol/L (22-30); Chloride 100 mmol/L (98-107); Globulin 3.5 g/dL; Glucose 282 mg/dL (74-99); LDH 1091 U/L (313-618); Magnesium 2.4 mg/dL (1.6-2.3); Non-African American GFR(CKD) >90 (>60 ml/min/1.73 sqM); Potassium 3.9 mmol/L (3.5-5.1); Sodium 137 mmol/L (137-145); Total Bilirubin 0.7 mg/dL (0.2-1.3); Total Protein 7.5 g/dL (6.3-8.2)
[2021-02-10 10:24] LABS: HCG,Qualitative Serum Not Detected
[2021-02-10] MEDS: DEXAMETHASONE SOD PHOSPHATE 10 MG/ML 1 ML VIAL IVP SCH (16:15)
[2021-02-10] MEDS: AZITHROMYCIN 500 MG TAB PO SCH (16:43)
--- NOTE | 2021-02-10 18:22 | P.CNPUL ---
History of Present Illness Consult date: 02/10/21 Requesting physician: Matheus Roberto Reason for consult: dyspnea, hypoxemia, pneumonia, abnormal CXR/CT Chief complaint: Dyspnea History of present illness: 45-year-old white female patient with no significant medical history, no history of chronic lung disease, presented to the hospital on 02/09/2021 for evaluation of shortness of breath, poor appetite, weakness, fatigue. Patient went to the urgent care clinic, and was tested for COVID-19 and the test was negative according to the patient. Patient reports 2 weeks worth of symptoms. She reports having fevers at home. At the urgent care clinic she was also hypoxic and placed on supplemental oxygen. Vital signs upon arrival showed t emperature 101.4F, 88% on room air. Blood pressure was normal, chest x-ray showed pulmonary interstitial and airspace edema, poor inspiration.COVID 19 PCR was repeated in the emergency department and was negative. D-dimer was 0.88, CT angiogram showed no evidence of pulmonary embolism, there was patchy bilateral pneumonia. Admission blood work has been reviewed, with blood cell count is 5.2, hemoglobin is 14.5, INR was 1.0, sodium is 137, potassium is 3.4, the rest of the blood work has been reviewed and was within normal limits, lactic acid was 1.2 AST was 81, ALT was 50, troponin was less than 0.012, alkaline phosphatase was 71, proBNP was 36. Patient is currently on 4 L of oxygen pulse ox is 92-94%. Patient states she has a and 2 children that tested negative for Covid Review of Systems All systems: negative Constitutional: Reports weakness, Denies chills, Denies fever Eyes: denies blurred vision, denies pain Ears, nose, mouth and throat: Denies headache, Denies sore throat Cardiovascular: Denies chest pain, Denies shortness of breath Respiratory: Reports dyspnea, Denies cough Gastrointestinal: Denies abdominal pain, Denies diarrhea, Denies nausea, Denies vomiting Genitourinary: Denies dysuria, Denies hematuria Musculoskeletal: Denies myalgias Integumentary: Denies pruritus, Denies rash Neurological: Denies numbness, Denies weakness Psychiatric: Denies anxiety, Denies depression Endocrine: Denies fatigue, Denies weight change Past Medical History Past Medical History: No Reported History History of Any Multi-Drug Resistant Organisms: None Reported Past Surgical History: Ablation, Breast Surgery, Orthopedic Surgery Additional Past Surgical History / Comment(s): left hip surgery age 4, 2 scopes left knee, 2 benign breast biopsies left breast right breast biopsy benign? Past Anesthesia/Blood Transfusion Reactions: No Reported Reaction Past Psychological History: No Psychological Hx Reported Smoking Status: Never smoker Past Alcohol Use History: None Reported Past Drug Use History: None Reported Medications and Allergies Home Medications Medication Instructions Recorded Confirmed Type No Known Home Medications 02/09/21 02/09/21 History Allergies Allergy/AdvReac Type Severity Reaction Status Date / Time Penicillins Allergy Rash/Hives Verified 02/09/21 17:39 Tetanus Vaccines and Toxoid Allergy Swelling Verified 02/09/21 17:39 Physical Exam Vitals: Vital Signs Temp Pulse Pulse Resp BP BP Pulse Ox 02/10/21 14:36 98.6 F 91 18 143/82 92 L 02/10/21 09:52 98.5 F 80 18 156/82 94 L 02/10/21 06:19 97.6 F 78 18 116/76 91 L 02/10/21 02:00 97.5 F L 73 18 137/82 95 02/09/21 21:15 98.7 F 86 18 136/81 93 L 02/09/21 20:29 100.5 F H 87 16 95/56 96 Intake and Output 02/10/21 02/10/21 02/10/21 06:59 14:59 22:59 Intake Total 160 Balance 160 Intake: Intake, IV Titration 160 Amount Sodium Chloride 0.9% 1, 160 000 ml @ 20 mls/hr IV . Q24H [facility] Rx#:[id number] Other: # Voids 1 Weight 151.5 kg GENERAL EXAM: Alert, very pleasant, 45-year-old white female, on 4 L of oxygen pulse ox is 92-94% comfortable in no apparent distress. HEAD: Normocephalic/atraumatic. EYES: Normal reaction of pupils, equal size. Conjunctiva pink, sclera white. NOSE: Clear with pink turbinates. THROAT: No erythema or exudates. NECK: No masses, no JVD, no thyroid enlargement, no adenopathy. CHEST: No chest wall deformity. Symmetrical expansion. LUNGS: Equal air entry with bibasilar crackles CVS: Regular rate and rhythm, normal S1 and S2, no gallops, no murmurs, no rubs ABDOMEN: Soft, nontender. No hepatosplenomegaly, normal bowel sounds, no guarding or rigidity. EXTREMITIES: No clubbing, no edema, no cyanosis, 2+ pulses and upper and lower extremities. MUSCULOSKELETAL: Muscle strength and tone normal. SPINE: No scoliosis or deformity SKIN: No rashes CENTRAL NERVOUS SYSTEM: Alert and oriented -3. No focal deficits, tone is normal in all 4 extremities. PSYCHIATRIC: Alert and oriented -3. Appropriate affect. Intact judgment and insight. Results - Laboratory Findings CBC and BMP: 02/09/21 17:48 02/10/21 08:29 PT/INR, D-dimer PT 10.8 sec (9.0-12.0) 02/09/21 16:45 INR 1.0 (<1.2) 02/09/21 16:45 D-Dimer 0.88 mg/L FEU (<0.60) H 02/09/21 16:45 Abnormal lab findings: Abnormal Labs 02/09/21 02/09/21 02/09/21 16:45 16:45 17:48 Lymphocytes # 0.9 L D-Dimer 0.88 H Potassium 3.4 L Glucose 131 H Magnesium Ferritin AST 81 H ALT 50 H Lactate Dehydrogenase C-Reactive Protein 02/10/21 08:29 Lymphocytes # D-Dimer Potassium Glucose 282 H Magnesium 2.4 H Ferritin 612.0 H AST 63 H ALT 50 H Lactate Dehydrogenase 1091 H C-Reactive Protein 5.4 H - Diagnostic Findings Chest x-ray: report reviewed, image reviewed CT scan - chest: report reviewed, image reviewed Assessment and Plan Plan: Assessment: #1. Acute hypoxic respiratory failure related to pneumonia, possibly community acquired, versus COVID-19 pneumonia is still under consideration. Patient tested negative for COVID-19 twice on outpatient basis, she came to the emerg ency department with over 10 day history of symptoms, patient is not vaccinated for COVID-19. CT angiogram shows patchy bilateral pneumonia, no evidence of pulmonary embolism. Pro-calcitonin level was negative, there is no leukocytosis make a possibility of community acquired pneumonia less likely. #2. Increased inflammatory markers related to the above #3. Increased d-dimer of 0.88, CT angiogram of the chest was negative for pulmonary embolism #4. Morbid obesity with BMI of 50.8 kg/m #5. Never smoker Plan: Continue Decadron 6 mg daily Pro-calcitonin level has been ordered and reviewed Continue empiric antibiotic coverage Repeat COVID-19 PCR and over the chin antibiotic test has been ordered and pending Continue prophylactic Lovenox Continue multivitamins Continue to follow her clinical course Follow-up d-dimer inflammatory markers were tomorrow Legionella urinary antigen Sputum culture I performed a history & physical examination of the patient and discussed their management with my nurse practitioner, Val Lopez. I reviewed the nurse practitioner's note and agree with the documented findings and plan of care. Lung sounds are positive for diffuse wheezes throughout the lung paula. The findings and the impression was discussed with the patient. I attest to the documentation by the nurse practitioner. Time with Patient: Greater than 30
--- NOTE | 2021-02-10 18:40 | P.HPIM ---
History of Present Illness This is a pleasant 45 years old female with no significant past medical history. She is a patient of Dr. Chavez. She supposed to follow up with [facility] for hysterectomy for her fibroid disease. Presents with dyspnea and hypoxia and fever. Patient states that she's having flu symptoms for about 2 weeks associated with lightheadedness with postural changes, she feels weak with no energy and decreased appetite. States that her dyspnea was going on for about a week associated with occasional coughing but no chest pain. No diarrhea or vomiting. No urinary symptoms. She denies smoking, alcohol or illicit drugs On admission she had a fever of 101.4. She was saturating 85% on room air. Improve to 91% on 4 L oxygen via nasal cannula. reviewed showing unremarkable CBC except for mild lymphopenia. D-dimer elevated at 0.8, potassium slightly low at 3.4, sodium 134, creatinine and lactic acid are normal. Liver enzymes slightly elevated at 81 AST and 50 ALT. Bilirubin is normal at 0.8 ProBNP 36, troponin less than 0.01. Ozuna virus not detected EKG showing normal sinus rhythm at 88 with no significant changes CTA of the chest: No pulmonary embolism, with patchy bilateral pneumonia which is also seen on the chest x-ray. Review of Systems CONSTITUTIONAL: No fever, no sweating HEENT: No recent visual problems or hearing problems. Denied any sore throat. CARDIOVASCULAR: No orthopnea, PND, no palpitations, no syncope. PULMONARY: No chest wall tenderness, no hemoptysis. GASTROINTESTINAL: No diarrhea, no nausea, no vomiting, no abdominal pain. Normoactive bowel sounds. NEUROLOGICAL: No headaches, no weakness, no numbness. HEMATOLOGICAL: Denies any bleeding or petechiae. GENITOURINARY: Denies any burning micturition, frequency, or urgency. MUSCULOSKELETAL/RHEUMATOLOGICAL: Denies any joint pain, swelling, or any muscle pain. ENDOCRINE: Denies any polyuria or polydipsia. Past Medical History Past Medical History: No Reported History History of Any Multi-Drug Resistant Organisms: None Reported Past Surgical History: Ablation, Breast Surgery, Orthopedic Surgery Additional Past Surgical History / Comment(s): left hip surgery age 4, 2 scopes left knee, 2 benign breast biopsies left breast right breast biopsy benign? Past Anesthesia/Blood Transfusion Reactions: No Reported Reaction Past Psychological History: No Psychological Hx Reported Smoking Status: Never smoker Past Alcohol Use History: None Reported Past Drug Use History: None Reported Medications and Allergies Home Medications Medication Instructions Recorded Confirmed Type No Known Home Medications 02/09/21 02/09/21 History Allergies Allergy/AdvReac Type Severity Reaction Status Date / Time Penicillins Allergy Rash/Hives Verified 02/09/21 17:39 Tetanus Vaccines and Toxoid Allergy Swelling Verified 02/09/21 17:39 Physical Exam Vitals: Vital Signs Temp Pulse Pulse Resp BP BP Pulse Ox 02/10/21 06:19 97.6 F 78 18 116/76 91 L 02/10/21 02:00 97.5 F L 73 18 137/82 95 02/09/21 21:15 98.7 F 86 18 136/81 93 L 02/09/21 20:29 100.5 F H 87 16 95/56 96 02/09/21 16:02 88 L 02/09/21 15:56 22 02/09/21 15:51 101.4 F H 101 H 20 130/72 85 L Intake and Output 02/09/21 02/10/21 02/10/21 22:59 06:59 14:59 Other: # Voids 1 Weight 151.5 kg 151.5 kg GENERAL: The patient is alert and oriented x3, not in any acute distress. Well developed, well nourished. HEENT: Pupils are round and equally reacting to light. EOMI. No scleral icterus. No conjunctival pallor. Normocephalic, atraumatic. No pharyngeal erythema. No thyromegaly. CARDIOVASCULAR: S1 and S2 present. No murmurs, rubs, or gallops. PULMONARY: Chest is clear to auscultation, no wheezing or crackles. ABDOMEN: Soft, nontender, nondistended, normoactive bowel sounds. No palpable organomegaly. MUSCULOSKELETAL: No joint swelling or deformity. EXTREMITIES: No cyanosis, clubbing, or pedal edema. NEUROLOGICAL: Gross neurological examination did not reveal any focal deficits. SKIN: No rashes. No petechiae Results CBC & Chem 7: 02/09/21 17:48 02/10/21 08:29 Labs: Abnormal Lab Results - Last 24 Hours (Table) 02/09/21 02/09/21 02/09/21 Range/Units 16:45 16:45 17:48 Lymphocytes # 0.9 L (1.0-4.8) k/uL D-Dimer 0.88 H (<0.60) mg/L FEU Potassium 3.4 L (3.5-5.1) mmol/L Glucose 131 H (74-99) mg/dL AST 81 H (14-36) U/L ALT 50 H (4-34) U/L Thrombosis Risk Factor Assmnt - Choose All That Apply Any of the Below Risk Factors Present?: Yes Each Factor Represents 1 point: Age 41-60 years, Obesity (BMI >25) Other Risk Factors: No Other congenital or acquired thrombophilia - If yes, enter type in comment: No Thrombosis Risk Factor Assessment Total Risk Factor Score: 2 Thrombosis Risk Factor Assessment Level: Low Risk Assessment and Plan Assessment: Bilateral pneumonia with covid-19 pneumonia suspected however Ozuna virus test was negative. Bacteria her pneumonia is also suspected Acute hypoxic respiratory failure increased inflammatory markers History of fibroids morbid obesity with BMI of 50.8 Plan: This is a pleasant 45 years old female who presents with bilateral pneumonia Coronavirus this was negative. We going to retest another sample. Start multiple vitamin C, D and zinc. Start empiric antibiotics Check procalcitonin and sputum culture. Check inflammatory markers Labs and medication were reviewed.. Continue same treatment. Continue with symptomatic treatment. Resume home medication. Monitor lytes and vitals. DVT and GI prophylaxis. Further recommendations depends on the clinical course of the patient DVT prophylaxis: Subcutaneous Lovenox GI Prophylaxis: Pepcid
[2021-02-10] MEDS: FAMOTIDINE 20 MG/2 ML VIAL IV SCH (20:51)
[2021-02-11] MEDS: ENOXAPARIN 40 MG/0.4 ML SYRINGE SQ SCH (07:54)
[2021-02-11] MEDS: CHOLECALCIFEROL 25 MCG (1000 IU) TABLET PO SCH (07:55)
[2021-02-11] MEDS: FAMOTIDINE 20 MG/2 ML VIAL IV SCH ×2 (07:55→20:35)
[2021-02-11] MEDS: DEXAMETHASONE SOD PHOSPHATE 10 MG/ML 1 ML VIAL IVP SCH (07:55)
[2021-02-11] MEDS: ASCORBIC ACID 500 MG TAB PO SCH (07:55)
[2021-02-11] MEDS: ZINC SULFATE 220 MG CAP PO SCH (07:55)
[2021-02-11 11:57] LABS: C Reactive Protein 2.5 mg/dL (0.00-0.80)
[2021-02-11] MEDS: AZITHROMYCIN 500 MG TAB PO SCH (16:07)
--- NOTE | 2021-02-11 17:19 | P.PN ---
Subjective Progress Note Date: 02/11/21 Principal diagnosis: COVID-19 pneumonia 45-year-old white female patient with no significant medical history, no history of chronic lung disease, presented to the hospital on 02/09/2021 for evaluation of shortness of breath, poor appetite, weakness, fatigue. Patient went to the urgent care clinic, and was tested for COVID-19 and the test was negative according to the patient. Patient reports 2 weeks worth of symptoms. She reports having fevers at home. At the urgent care clinic she was also hypoxic and placed on supplemental oxygen. Vital signs upon arrival showed te mperature 101.4F, 88% on room air. Blood pressure was normal, chest x-ray showed pulmonary interstitial and airspace edema, poor inspiration.COVID 19 PCR was repeated in the emergency department and was negative. D-dimer was 0.88, CT angiogram showed no evidence of pulmonary embolism, there was patchy bilateral pneumonia. Admission blood work has been reviewed, with blood cell count is 5.2, hemoglobin is 14.5, INR was 1.0, sodium is 137, potassium is 3.4, the rest of the blood work has been reviewed and was within normal limits, lactic acid was 1.2 AST was 81, ALT was 50, troponin was less than 0.012, alkaline phosphatase was 71, proBNP was 36. Patient is currently on 4 L of oxygen pulse ox is 92-94%. Patient states she has a and 2 children that tested negative for Covid the patient is seen today 02/11/2021 in follow-up on the regular medical floor. She is currently sitting up in a chair at the bedside. Awake and alert in no acute distress. She is maintaining O2 saturations in the 90s on 4 L/m per nasal cannula. She did test positive for COVID-19 today. She also has antibodies. d- dimer 0.47. LDH 501. C reactive protein 2.5. Pro-calcitonin 0.09. She is currently on ceftriaxone and azithromycin along with Lovenox, Decadron, vitamin supplements. Objective - Vital Signs Vital signs: Vital Signs Temp 97.5 F L 02/11/21 14:48 Pulse 77 02/11/21 14:48 Resp 18 02/11/21 14:48 BP 151/82 02/11/21 14:48 Pulse Ox 94 L 02/11/21 14:48 Intake & Output 02/10/21 02/11/21 02/11/21 18:59 06:59 18:59 Intake Total 160 50 Output Total 300 Balance 160 -300 50 Intake: Intake, IV Titration 160 50 Amount Sodium Chloride 0.9% 1, 160 000 ml @ 20 mls/hr IV . Q24H [facility] Rx#:[id number] cefTRIAXone 1 gm In 50 Sodium Chloride 0.9% 50 ml @ 100 mls/hr IVPB Q24HR [facility] Rx#:[id number] Output: Urine 300 Other: Voiding Method Toilet - Exam GENERAL EXAM: Alert, active, pleasant 45-year-old female patient, on 4 L nasal cannula,comfortable in no apparent distress. HEAD: Normocephalic. EYES: Normal reaction of pupils, equal size. NOSE: Clear with pink turbinates. THROAT: No erythema or exudates. NECK: No masses, no JVD. CHEST: No chest wall deformity. LUNGS: Equal air entry with crackles in the posterior bases. CVS: S1 and S2 normal with no audible murmur, regular rhythm. ABDOMEN: No hepatosplenomegaly, normal bowel sounds, no guarding or rigidity. SPINE: No scoliosis or deformity SKIN: No rashes CENTRAL NERVOUS SYSTEM: No focal deficits, tone is normal in all 4 extremities. EXTREMITIES: There is no peripheral edema. No clubbing, no cyanosis. Periph eral pulses are intact. - Labs CBC & Chem 7: 02/09/21 17:48 02/10/21 08:29 Labs: Abnormal Lab Results - Last 24 Hours (Table) 02/10/21 02/10/21 02/11/21 Range/Units 08:29 14:15 07:35 Lactate Dehydrogenase 501 H (120-246) U/L C-Reactive Protein 2.50 H (0.00-0.80) mg/dL Coronavirus (PCR) Detected A (Not Detected) SARS-CoV-2 Ab,Total Positive A (Negative) Assessment and Plan Assessment: 1 Acute hypoxic respiratory failure related to COVID-19 pneumonia. The patient had a positive test today along with antibodies present. Patient tested negati ve for COVID-19 twice on outpatient basis, she came to the emergency department with over 10 day history of symptoms, patient is not vaccinated for COVID-19. CT angiogram shows patchy bilateral pneumonia, no evidence of pulmonary embolism. Pro-calcitonin level was negative, antibiotics discontinued. 2 Increased inflammatory markers related to the above 3 Increased d-dimer of 0.88, CT angiogram of the chest was negative for pulmonary embolism 4 Morbid obesity with BMI of 50.8 kg/m 5 Never smoker Plan: The patient was seen and evaluated by Dr. Hollingsworth Patient is positive for COVID-19 pneumonia Discontinue antibiotics Continue Lovenox, Decadron, vitamin supplements Titrate the FiO2 as tolerated We will continue to follow I, the cosigning physician, performed a history & physical examination of the patient. Lungs sounds with crackles in the bilateral bases. Maintaining good O2 saturations in the 90s on 4 L/m per nasal cannula. I discussed the assessment and plan of care with my nurse practitioner, Antonia Araujo. I attest to the above note as dictated by her.
[2021-02-11 19:43] LABS: Glucose,Whole Blood 321 mg/dL (75-99)
--- NOTE | 2021-02-11 19:51 | P.PN ---
Subjective This is a pleasant 45 years old female with no significant past medical history. She is a patient of Dr. Chavez. 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 Presents with dyspnea and hypoxia and fever. Patient states that she's having flu symptoms for about 2 weeks associated with lightheadedness with postural changes, she feels weak with no energy and decreased appetite. States that her dyspnea was going on for about a week associated with occasional coughing but no chest pain. No diarrhea or vomiting. No urinary symptoms. She denies smoking, alcohol or illicit drugs On admission she had a fever of 101.4. She was saturating 85% on room air. Improve to 91% on 4 L oxygen via nasal cannula. reviewed showing unremarkable CBC except for mild lymphopenia. D-dimer elevated at 0.8, potassium slightly low at 3.4, sodium 134, creatinine and lactic acid are normal. Liver enzymes slightly elevated at 81 AST and 50 ALT. Bilirubin is normal at 0.8 ProBNP 36, troponin less than 0.01. Ozuna virus not detected EKG showing normal sinus rhythm at 88 with no significant changes CTA of the chest: No pulmonary embolism, with patchy bilateral pneumonia which is also seen on the chest x-ray. 02/11/2021 Patient with bilateral pneumonia. Call Ozuna virus CPR test came back positive. On 4 L oxygen per minute. Increased inflammatory markers LDH 501 at C reactive protein 2.5. Glucose from 300. Abdomen acute check. Continue with dexamethasone, multiple vitamins Objective - Vital Signs Vital signs: Vital Signs Temp 97.6 F 02/11/21 09:53 Pulse 84 02/11/21 09:53 Resp 17 02/11/21 09:53 BP 158/70 02/11/21 09:53 Pulse Ox 91 L 02/11/21 09:53 Intake & Output 02/10/21 02/11/21 02/11/21 18:59 06:59 18:59 Intake Total 160 50 Output Total 300 Balance 160 -300 50 Intake: Intake, IV Titration 160 50 Amount Sodium Chloride 0.9% 1, 160 000 ml @ 20 mls/hr IV . Q24H [facility] Rx#:[id number] cefTRIAXone 1 gm In 50 Sodium Chloride 0.9% 50 ml @ 100 mls/hr IVPB Q24HR [facility] Rx#:[id number] Output: Urine 300 Other: Voiding Method Toilet - Exam GENERAL: The patient is alert and oriented x3, not in any acute distress. Well developed, well nourished. HEENT: Pupils are round and equally reacting to light. EOMI. No scleral icterus. No conjunctival pallor. Normocephalic, atraumatic. No pharyngeal erythema. No thyromegaly. CARDIOVASCULAR: S1 and S2 present. No murmurs, rubs, or gallops. =PULMONARY: Chest is clear to auscultation, no wheezing or crackles. Bilateral crepitation ABDOMEN: Soft, nontender, nondistended, normoactive bowel sounds. No palpable organomegaly. MUSCULOSKELETAL: No joint swelling or deformity. EXTREMITIES: No cyanosis, clubbing, or pedal edema. NEUROLOGICAL: Gross neurological examination did not reveal any focal deficits. SKIN: No rashes. no petechiae. - Labs CBC & Chem 7: 02/09/21 17:48 02/10/21 08:29 Labs: Abnormal Lab Results - Last 24 Hours (Table) 02/10/21 02/11/21 Range/Units 08:29 07:35 Ferritin 612.0 H (10.0-291.0) ng/mL Lactate Dehydrogenase 501 H (120-246) U/L C-Reactive Protein 2.50 H (0.00-0.80) mg/dL Assessment and Plan Assessment: Bilateral pneumonia with covid-19 pneumonia Acute hypoxic respiratory failure increased inflammatory markers History of fibroids morbid obesity with BMI of 50.8 Plan: This is a pleasant 45 years old female who presents with bilateral pneumonia Check inflammatory markers Coronavirus CPR is positive. Start multiple vitamin C, D and zinc. Secondary to Covid 19 Continue same treatment. Continue with symptomatic treatment. Resume home medication. Monitor lytes and vitals. DVT and GI prophylaxis. Further recommendations depends on the clinical course of the patient DVT prophylaxis: Subcutaneous Lovenox GI Prophylaxis: Pepcid
[2021-02-11] MEDS: SODIUM CHLORIDE 0.9% 1,000 ML IV SCH (20:23)
[2021-02-11] MEDS: INSULIN ASPART (NovoLOG) 100 UNIT/ML VIAL SQ SCH (20:35)
[2021-02-12 03:03] LABS: Glucose,Whole Blood 154 mg/dL (75-99)
[2021-02-12 07:15] LABS: Glucose,Whole Blood 149 mg/dL (75-99)
[2021-02-12] MEDS: FAMOTIDINE 20 MG/2 ML VIAL IV SCH (07:34)
[2021-02-12] MEDS: DEXAMETHASONE SOD PHOSPHATE 10 MG/ML 1 ML VIAL IVP SCH (07:34)
[2021-02-12] MEDS: ZINC SULFATE 220 MG CAP PO SCH (07:35)
[2021-02-12] MEDS: ASCORBIC ACID 500 MG TAB PO SCH (07:35)
[2021-02-12] MEDS: INSULIN ASPART (NovoLOG) 100 UNIT/ML VIAL SQ SCH ×4 (07:35→20:07)
[2021-02-12] MEDS: ENOXAPARIN 40 MG/0.4 ML SYRINGE SQ SCH (07:35)
[2021-02-12] MEDS: CHOLECALCIFEROL 25 MCG (1000 IU) TABLET PO SCH (07:35)
--- NOTE | 2021-02-12 07:48 | XR ---
EXAMINATION TYPE: XR chest 1V portable DATE OF EXAM: 02/12/2021 COMPARISON: 02/09/2021 HISTORY: Chest pain TECHNIQUE: Single frontal view of the chest is obtained. FINDINGS: Patchy infiltrates throughout both lung paula persist unchanged. The cardiac silhouette size is within normal limits. The osseous structures are intact. IMPRESSION: 1. Patchy infiltrates throughout both lung paula persist unchanged.
[2021-02-12 11:23] LABS: C Reactive Protein 1.3 mg/dL (0.00-0.80)
[2021-02-12 11:56] LABS: Glucose,Whole Blood 147 mg/dL (75-99)
--- NOTE | 2021-02-12 13:51 | P.PN ---
Subjective Progress Note Date: 02/12/21 45-year-old white female patient with no significant medical history, no history of chronic lung disease, presented to the hospital on 02/09/2021 for evaluation of shortness of breath, poor appetite, weakness, fatigue. Patient went to the urgent care clinic, and was tested for COVID-19 and the test was negative according to the patient. Patient reports 2 weeks worth of symptoms. She reports having fevers at home. At the urgent care clinic she was also hypoxic and placed on supplemental oxygen. Vital signs upon arrival showed temperature 101.4F, 88% on room air. Blood pressure was normal, chest x-ray showed pulmonary interstitial and airspace edema, poor inspiration.COVID 19 PCR was repeated in the emergency department and was negative. D-dimer was 0.88, CT angiogram showed no evidence of pulmonary embolism, there was patchy bilateral pneumonia. Admission blood work has been reviewed, with blood cell count is 5.2, hemoglobin is 14.5, INR was 1.0, sodium is 137, potassium is 3.4, the rest of the blood work has been reviewed and was within normal limits, lactic acid was 1.2 AST was 81, ALT was 50, troponin was less than 0.012, alkaline phosphatase was 71, proBNP was 36. Patient is currently on 4 L of oxygen pulse ox is 92-94%. Patient states she has a and 2 children that tested negative for Covid the patient is seen today 02/11/2021 in follow-up on the regular medical floor. She is currently sitting up in a chair at the bedside. Awake and alert in no acute distress. She is maintaining O2 saturations in the 90s on 4 L/m per nasal cannula. She did test positive for COVID-19 today. She also has antibodies. d- dimer 0.47. LDH 501. C reactive protein 2.5. Pro-calcitonin 0.09. She is currently on ceftriaxone and azithromycin along with Lovenox, Decadron, vitamin supplements. 02/12/2021, syncope patient for a follow-up. Doing well. Still on oxygen 4 L per minute nasal cannula. The patient remains on Decadron. D-dimer is down to 0.57. LDH is down to 341 with a CRP of 1.3. No new complaints otherwise for now. The patient is doing well for now. Also external 94% 4 L of oxygen by nasal cannula. The pro-calcitonin level was also low at 0.09. Objective - Vital Signs Vital signs: Vital Signs Temp 97.8 F 02/12/21 10:00 Pulse 81 02/12/21 10:00 Resp 19 02/12/21 10:00 BP 138/84 02/12/21 10:00 Pulse Ox 94 L 02/12/21 10:00 Intake & Output 02/11/21 02/12/21 02/12/21 18:59 06:59 18:59 Intake Total 50 Balance 50 Intake: Intake, IV Titration 50 Amount cefTRIAXone 1 gm In 50 Sodium Chloride 0.9% 50 ml @ 100 mls/hr IVPB Q24HR [facility] Rx#:[id number] Other: Voiding Method Toilet # Voids 2 - Exam GENERAL EXAM: Alert, active, pleasant 45-year-old female patient, on 4 L nasal cannula,comfortable in no apparent distress. HEAD: Normocephalic. EYES: Normal reaction of pupils, equal size. NOSE: Clear with pink turbinates. THROAT: No erythema or exudates. NECK: No masses, no JVD. CHEST: No chest wall deformity. LUNGS: Equal air entry with crackles in the posterior bases. CVS: S1 and S2 normal with no audible murmur, regular rhythm. ABDOMEN: No hepatosplenomegaly, normal bowel sounds, no guarding or rigidity. SPINE: No scoliosis or deformity SKIN: No rashes CENTRAL NERVOUS SYSTEM: No focal deficits, tone is normal in all 4 extremities. EXTREMITIES: There is no peripheral edema. No clubbing, no cyanosis. Peripheral pulses are intact. - Labs CBC & Chem 7: 02/09/21 17:48 02/10/21 08:29 Labs: Abnormal Lab Results - Last 24 Hours (Table) 02/10/21 02/10/21 02/11/21 Range/Units 08:29 14:15 19:42 POC Glucose (mg/dL) 321 H (75-99) mg/dL Lactate Dehydrogenase (120-246) U/L C-Reactive Protein (0.00-0.80) mg/dL Coronavirus (PCR) Detected A (Not Detected) SARS-CoV-2 Ab,Total Positive A (Negative) 02/12/21 02/12/21 02/12/21 Range/Units 03:01 06:32 07:13 POC Glucose (mg/dL) 154 H 149 H (75-99) mg/dL Lactate Dehydrogenase 341 H (120-246) U/L C-Reactive Protein 1.30 H (0.00-0.80) mg/dL Coronavirus (PCR) (Not Detected) SARS-CoV-2 Ab,Total (Negative) 02/12/21 Range/Units 11:54 POC Glucose (mg/dL) 147 H (75-99) mg/dL Lactate Dehydrogenase (120-246) U/L C-Reactive Protein (0.00-0.80) mg/dL Coronavirus (PCR) (Not Detected) SARS-CoV-2 Ab,Total (Negative) Assessment and Plan Plan: 1 Acute hypoxic respiratory failure related to COVID-19 pneumonia. The patient had a positive test today along with antibodies present. Patient tested negative for COVID-19 twice on outpatient basis, she came to the emergency department with over 10 day history of symptoms, patient is not vaccinated for COVID-19. CT angiogram shows patchy bilateral pneumonia, no evidence of pulmonary embolism. Pro-calcitonin level was negative, antibiotics discontinued. 2 Increased inflammatory markers related to the above 3 Increased d-dimer of 0.88, CT angiogram of the chest was negative for pulmonary embolism 4 Morbid obesity with BMI of 50.8 kg/m 5 Never smoker Plan: The patient is clinically stable and the patient is currently on 4 L of oxygen by nasal cannula. This can be gradually weaned off. After mother markers are low at this point in time including LDH, CRP and d-dimer's. Continue Lovenox, Decadron, vitamin supplements Titrate the FiO2 as tolerated, i cut the fio2 down to 3 L and will gradually wean it down to maintain a saturation above 90%. We will continue to follow
[2021-02-12 16:59] LABS: Glucose,Whole Blood 230 mg/dL (75-99)
[2021-02-12 19:59] LABS: Glucose,Whole Blood 320 mg/dL (75-99)
[2021-02-12] MEDS: FAMOTIDINE 20 MG TAB PO SCH (20:07)
[2021-02-12] MEDS: SODIUM CHLORIDE 0.9% 1,000 ML IV SCH (20:08)
--- NOTE | 2021-02-13 06:57 | P.PN ---
Subjective This is a pleasant 45 years old female with no significant past medical history. She is a patient of Dr. Chavez. 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 Presents with dyspnea and hypoxia and fever. Patient states that she's having flu symptoms for about 2 weeks associated with lightheadedness with postural changes, she feels weak with no energy and decreased appetite. States that her dyspnea was going on for about a week associated with occasional coughing but no chest pain. No diarrhea or vomiting. No urinary symptoms. She denies smoking, alcohol or illicit drugs On admission she had a fever of 101.4. She was saturating 85% on room air. Improve to 91% on 4 L oxygen via nasal cannula. reviewed showing unremarkable CBC except for mild lymphopenia. D-dimer elevated at 0.8, potassium slightly low at 3.4, sodium 134, creatinine and lactic acid are normal. Liver enzymes slightly elevated at 81 AST and 50 ALT. Bilirubin is normal at 0.8 ProBNP 36, troponin less than 0.01. Ozuna virus not detected EKG showing normal sinus rhythm at 88 with no significant changes CTA of the chest: No pulmonary embolism, with patchy bilateral pneumonia which is also seen on the chest x-ray. 02/11/2021 Patient with bilateral pneumonia. Call Ozuna virus CPR test came back positive. On 4 L oxygen per minute. Increased inflammatory markers LDH 501 at C reactive protein 2.5. Glucose from 300. Abdomen acute check. Continue with dexamethasone, multiple vitamins 02/12/2021 Patient with dyspnea secondary to call with with mild improvement. Her oxygen requirements down to 2 L/m but she is saturating 94% only. LDH stable at 341, selective protein slightly better 1.3. D-dimer negative at 0.57. Chest x-ray showing unchanged bilateral pneumonia. Continue with some his is on multiple vitamins. Keep monitoring for now Objective - Vital Signs Vital signs: Vital Signs Temp 97.8 F 02/12/21 06:00 Pulse 74 02/12/21 06:00 Resp 14 02/12/21 02:00 BP 126/75 02/12/21 06:00 Pulse Ox 94 L 02/12/21 06:00 Intake & Output 02/11/21 02/12/21 02/12/21 18:59 06:59 18:59 Intake Total 50 Balance 50 Intake: Intake, IV Titration 50 Amount cefTRIAXone 1 gm In 50 Sodium Chloride 0.9% 50 ml @ 100 mls/hr IVPB Q24HR [facility] Rx#:[id number] Other: Voiding Method Toilet # Voids 2 - Exam GENERAL: The patient is alert and oriented x3, not in any acute distress. Well developed, well nourished. HEENT: Pupils are round and equally reacting to light. EOMI. No scleral icterus. No conjunctival pallor. Normocephalic, atraumatic. No pharyngeal erythema. No thyromegaly. CARDIOVASCULAR: S1 and S2 present. No murmurs, rubs, or gallops. =PULMONARY: Chest is clear to auscultation, no wheezing or crackles. Bilateral crepitation ABDOMEN: Soft, nontender, nondistended, normoactive bowel sounds. No palpable organomegaly. MUSCULOSKELETAL: No joint swelling or deformity. EXTREMITIES: No cyanosis, clubbing, or pedal edema. NEUROLOGICAL: Gross neurological examination did not reveal any focal deficits. SKIN: No rashes. no petechiae. - Labs CBC & Chem 7: 02/09/21 17:48 02/10/21 08:29 Labs: Abnormal Lab Results - Last 24 Hours (Table) 02/10/21 02/10/21 02/11/21 Range/Units 08:29 14:15 07:35 POC Glucose (mg/dL) (75-99) mg/dL Lactate Dehydrogenase 501 H (120-246) U/L C-Reactive Protein 2.50 H (0.00-0.80) mg/dL Coronavirus (PCR) Detected A (Not Detected) SARS-CoV-2 Ab,Total Positive A (Negative) 02/11/21 02/12/21 02/12/21 Range/Units 19:42 03:01 07:13 POC Glucose (mg/dL) 321 H 154 H 149 H (75-99) mg/dL Lactate Dehydrogenase (120-246) U/L C-Reactive Protein (0.00-0.80) mg/dL Coronavirus (PCR) (Not Detected) SARS-CoV-2 Ab,Total (Negative) Assessment and Plan Assessment: Bilateral pneumonia with covid-19 pneumonia Acute hypoxic respiratory failure increased inflammatory markers History of fibroids morbid obesity with BMI of 50.8 Plan: This is a pleasant 45 years old female who presents with bilateral pneumonia Check inflammatory markers Coronavirus CPR is positive. Start multiple vitamin C, D and zinc. Secondary to Covid 19 Continue same treatment. Continue with symptomatic treatment. Resume home medication. Monitor lytes and vitals. DVT and GI prophylaxis. Further recommendations depends on the clinical course of the patient DVT prophylaxis: Subcutaneous Lovenox GI Prophylaxis: Pepcid
[2021-02-13 07:10] LABS: Glucose,Whole Blood 139 mg/dL (75-99)
[2021-02-13] MEDS: INSULIN ASPART (NovoLOG) 100 UNIT/ML VIAL SQ SCH ×2 (07:37→12:21)
[2021-02-13] MEDS: ZINC SULFATE 220 MG CAP PO SCH (07:41)
[2021-02-13] MEDS: DEXAMETHASONE SOD PHOSPHATE 10 MG/ML 1 ML VIAL IVP SCH (07:41)
[2021-02-13] MEDS: CHOLECALCIFEROL 25 MCG (1000 IU) TABLET PO SCH (07:41)
[2021-02-13] MEDS: FAMOTIDINE 20 MG TAB PO SCH (07:41)
[2021-02-13] MEDS: ASCORBIC ACID 500 MG TAB PO SCH (07:41)
[2021-02-13] MEDS: ENOXAPARIN 40 MG/0.4 ML SYRINGE SQ SCH (07:41)
[2021-02-13 10:20] VITALS: BP 148/86; RESP 18; TEMP 97.5
[2021-02-13 11:42] LABS: Glucose,Whole Blood 215 mg/dL (75-99)
[2021-02-13 12:28] LABS: African American GFR (CKD) >90 (>60 ml/min/1.73 sqM); Anion Gap 8 mmol/L; Blood Urea Nitrogen 11 mg/dL (7-17); Calcium 9.1 mg/dL (8.4-10.2); Carbon Dioxide 32 mmol/L (22-30); Chloride 99 mmol/L (98-107); Glucose 221 mg/dL (74-99); Non-African American GFR(CKD) >90 (>60 ml/min/1.73 sqM); Sodium 139 mmol/L (137-145)
--- NOTE | 2021-02-13 13:32 | P.PN ---
Subjective Progress Note Date: 02/13/21 45-year-old white female patient with no significant medical history, no history of chronic lung disease, presented to the hospital on 02/09/2021 for evaluation of shortness of breath, poor appetite, weakness, fatigue. Patient went to the urgent care clinic, and was tested for COVID-19 and the test was negative according to the patient. Patient reports 2 weeks worth of symptoms. She reports having fevers at home. At the urgent care clinic she was also hypoxic and placed on supplemental oxygen. Vital signs upon arrival showed temperature 101.4F, 88% on room air. Blood pressure was normal, chest x-ray showed pulmonary interstitial and airspace edema, poor inspiration.COVID 19 PCR was repeated in the emergency department and was negative. D-dimer was 0.88, CT angiogram showed no evidence of pulmonary embolism, there was patchy bilateral pneumonia. Admission blood work has been reviewed, with blood cell count is 5.2, hemoglobin is 14.5, INR was 1.0, sodium is 137, potassium is 3.4, the rest of the blood work has been reviewed and was within normal limits, lactic acid was 1.2 AST was 81, ALT was 50, troponin was less than 0.012, alkaline phosphatase was 71, proBNP was 36. Patient is currently on 4 L of oxygen pulse ox is 92-94%. Patient states she has a and 2 children that tested negative for Covid the patient is seen today 02/11/2021 in follow-up on the regular medical floor. She is currently sitting up in a chair at the bedside. Awake and alert in no acute distress. She is maintaining O2 saturations in the 90s on 4 L/m per nasal cannula. She did test positive for COVID-19 today. She also has antibodies. d- dimer 0.47. LDH 501. C reactive protein 2.5. Pro-calcitonin 0.09. She is currently on ceftriaxone and azithromycin along with Lovenox, Decadron, vitamin supplements. 02/12/2021, syncope patient for a follow-up. Doing well. Still on oxygen 4 L per minute nasal cannula. The patient remains on Decadron. D-dimer is down to 0.57. LDH is down to 341 with a CRP of 1.3. No new complaints otherwise for now. The patient is doing well for now. Also external 94% 4 L of oxygen by nasal cannula. The pro-calcitonin level was also low at 0.09. 02/13/2021, the patient is feeling very well. She was able to wean herself down on oxygen and she is currently down to 1 L per minute nasal cannula. Note that the patient was on 4 L earlier. While on room air, she desaturates with activity down to the low 80s. As such, if discharge is being contemplated, the patient is going to need oxygen. Doing well otherwise patient is on Decadron. No fever. No chills. Appetite is good. She has good energy level. She is young. No major other comorbidities. Renal function is also stable. Objective - Vital Signs Vital signs: Vital Signs Temp 97.5 F L 02/13/21 10:19 Pulse 77 02/13/21 10:19 Resp 18 02/13/21 10:19 BP 148/86 02/13/21 10:19 Pulse Ox 91 L 02/13/21 12:34 Intake & Output 02/12/21 02/13/21 02/13/21 18:59 06:59 18:59 Other: # Voids 2 - Exam GENERAL EXAM: Alert, active, pleasant 45-year-old female patient, on 1 L nasal cannula,comfortable in no apparent distress. HEAD: Normocephalic. EYES: Normal reaction of pupils, equal size. NOSE: Clear with pink turbinates. THROAT: No erythema or exudates. NECK: No masses, no JVD. CHEST: No chest wall deformity. LUNGS: Equal air entry with crackles in the posterior bases. CVS: S1 and S2 normal with no audible murmur, regular rhythm. ABDOMEN: No hepatosplenomegaly, normal bowel sounds, no guarding or rigidity. SPINE: No scoliosis or deformity SKIN: No rashes CENTRAL NERVOUS SYSTEM: No focal deficits, tone is normal in all 4 extremities. EXTREMITIES: There is no peripheral edema. No clubbing, no cyanosis. Peripheral pulses are intact. - Labs CBC & Chem 7: 02/09/21 17:48 02/13/21 11:30 Labs: Abnormal Lab Results - Last 24 Hours (Table) 02/12/21 02/12/21 02/13/21 Range/Units 16:55 19:56 07:08 Carbon Dioxide (22-30) mmol/L Glucose (74-99) mg/dL POC Glucose (mg/dL) 230 H 320 H 139 H (75-99) mg/dL 02/13/21 02/13/21 Range/Units 11:30 11:41 Carbon Dioxide 32 H (22-30) mmol/L Glucose 221 H (74-99) mg/dL POC Glucose (mg/dL) 215 H (75-99) mg/dL Assessment and Plan Plan: 1 Acute hypoxic respiratory failure related to COVID-19 pneumonia. The patient had a positive test . Patient tested negative for COVID-19 twice on outpatient basis, she came to the emergency department with over 10 day history of symptoms, patient is not vaccinated for COVID-19. CT angiogram shows patchy bilateral pneumonia, no evidence of pulmonary embolism. Pro-calcitonin level was negative, antibiotics discontinued. Oxidation is improved and the patient is currently down to 1 L of oxygen by nasal cannula. Inflammatory markers have all improved. 2 Increased inflammatory markers related to the above 3 Increased d-dimer of 0.88, CT angiogram of the chest was negative for pulmonary embolism 4 Morbid obesity with BMI of 50.8 kg/m 5 Never smoker Plan: The patient is clinically stable and the patient is currently on 1 L of oxygen by nasal cannula. This can be gradually weaned off. After mother markers are low at this point in time including LDH, CRP and d-dimer's. Continue Lovenox, Decadron, vitamin supplements Titrate the FiO2 as tolerated, and if discharge is being contemplated and this is possible, the patient will need oxygen with a concentrator induction tax to be followed up on outpatient basis within the next 2-3 weeks. The patient will also need a pulse oximeter to monitor oxygen on outpatient basis. Continue also Decadron. May be able to get discharged as long as there is oxygen therapy provided to the patient today..
[2021-02-13 14:32] LABS: Basophils # (A) 0 X 10*3/uL (0.00-0.10); Basophils % (A) 0 %; Eosinophils # (A) 0.01 X 10*3/uL (0.04-0.35); Eosinophils % (A) 0.2 %; HGB 13.6 g/dL (12.0-15.0); Lymphocytes # (A) 0.76 X 10*3/uL (0.90-5.00); Lymphocytes % (A) 11.5 %; MCH 28.9 pg (27.0-32.0); MCHC 32.4 g/dL (32.0-37.0); MCV 89.4 fL (80.0-97.0); Mean Platelet Volume 12.2 fL (9.5-12.2); Monocytes # (A) 0.33 X 10*3/uL (0.20-1.00); Neutrophils % (A) 82.8 %; Platelet Count 330 X 10*3/uL (140-440); RDW 12.4 % (11.5-14.5); WBC 6.63 X 10*3/uL (4.50-10.00)
[2021-02-13 14:55] VITALS: PULSE 62
== END 2021-02-13 16:00 | disposition home or self-care (01) | DRG 177 ==
LOC: EC 15:48 → 4SSUR 19:46
PROVIDERS: ADMIT Hospitalist; ATTEND Hospitalist
PROC: 3E0333Z Introduction of Anti-inflammatory into Peripheral Vein, Percutaneous Approach (ICD-10-PCS; principal; 2021-02-09)
DX: U07.1 COVID-19 (principal); J12.82 Pneumonia due to coronavirus disease 2019; J96.01 Acute respiratory failure with hypoxia; Z68.43 Body mass index [BMI] 50.0-59.9, adult; D72.810 Lymphocytopenia; E66.01 Morbid (severe) obesity due to excess calories; Z88.0 Allergy status to penicillin
CPT/HCPCS: 36415; 71045; 71275; 80048; 80053; 80076; 82728; 83605; 83615; 83735; 83880; 84145; 84484; 84703; 85025; 85379; 85610; 85730; 86140; 86769; 87449; 87635; 93005; 96374; 99291

== ENCOUNTER 2021-04-19 07:07 | Inpatient (IN) | payer BC ==
[2021-04-12 11:44] VITALS: BMI 49.2
--- NOTE | 2021-04-19 07:00 | P.HPOB ---
History of Present Illness H&P Date: 04/19/21 Chief Complaint: dysmenorrhea, fibroid uterus 45-year-old presents for total abdominal hysterectomy bilateral salpingectomy for fibroid uterus causing dysmenorrhea and menorrhagia. Her uterus is 14 cm with 2 fibroids at least 5.7 cm and 3 cm. She had an ablation with another physician last year after which the pain got much worse. Patient is looking for definitive treatment for her bleeding and pain and presents today for a DAVID. Review of Systems All systems: negative Constitutional: Denies chills, Denies fever Eyes: denies blurred vision, denies pain Ears, nose, mouth and throat: Denies headache, Denies sore throat Cardiovascular: Denies chest pain, Denies shortness of breath Respiratory: Denies cough Gastrointestinal: Denies abdominal pain, Denies diarrhea, Denies nausea, Denies vomiting Genitourinary: Denies dysuria, Denies hematuria Musculoskeletal: Denies myalgias Integumentary: Denies pruritus, Denies rash Neurological: Denies numbness, Denies weakness Psychiatric: Denies anxiety, Denies depression Endocrine: Denies fatigue, Denies weight change Past Medical History Past Medical History: No Reported History Additional Past Medical History / Comment(s): RECENT HX OF PNEUMONIA 01/2021. UTERINE FIBROIDS History of Any Multi-Drug Resistant Organisms: None Reported Past Surgical History: Breast Surgery, Orthopedic Surgery, Uterine Ablation Additional Past Surgical History / Comment(s): left hip surgery age 4, 2 scopes left knee, 2 benign breast biopsies left breast right breast biopsy benign? Past Anesthesia/Blood Transfusion Reactions: No Reported Reaction Smoking Status: Never smoker - Past Family History Daughter(s) Family Medical History: Deep Vein Thrombosis (DVT) Additional Family Medical History / Comment(s): AFTER HAVING A BABY Medications and Allergies Home Medications Medication Instructions Recorded Confirmed Type Ascorbic Acid [Vitamin C] 1,000 mg PO DAILY #30 tab 02/13/21 Rx Cholecalciferol [Vitamin D3 (25 50 mcg PO DAILY #30 tablet 02/13/21 Rx Mcg = 1000 Iu)] Dexamethasone [Decadron] 6 mg PO DAILY #6 tablet 02/13/21 Rx Famotidine [Pepcid] 20 mg PO BID 14 Days #28 tab 02/13/21 Rx Zinc Sulfate [Orazinc] 220 mg PO DAILY #30 cap 02/13/21 Rx Allergies Allergy/AdvReac Type Severity Reaction Status Date / Time Penicillins Allergy Rash/Hives Verified 04/12/21 11:35 Tetanus Vaccines and Toxoid Allergy Swelling Verified 04/12/21 11:35 Exam Osteopathic Statement: *. No significant issues noted on an osteopathic structural exam other than those noted in the History and Physical/Consult. Heart: Regular rate and rhythm Lungs: Clear to auscultation bilaterally Abdomen: Soft, nontender Extremities: Negative Homans sign Assessment and Plan (1) Fibroid uterus Status: Acute Code(s): D25.9 - LEIOMYOMA OF UTERUS, UNSPECIFIED SNOMED Code(s): 53184345 (2) Menorrhagia Status: Acute Code(s): N92.0 - EXCESSIVE AND FREQUENT MENSTRUATION WITH REGULAR CYCLE SNOMED Code(s): 626992623 (3) Dysmenorrhea Status: Acute Code(s): N94.6 - DYSMENORRHEA, UNSPECIFIED SNOMED Code(s): 078828133 Plan: 1. Total normal hysterectomy bilateral salpingectomy. Allalternatives have been discussed with the patient and she is under complete understanding.
[~2021-04-19 07:07] MED LIST changes: -DEXAMETHASONE SOD PHOSPHATE 10 MG/ML 1 ML VIAL IV ONE; -HYDROmorphone 0.5 MG/0.5 ML SYRINGE IVP PRN; -MIDAZOLAM 2 MG/2 ML VIAL IV PRN; -ONDANSETRON 4 MG/2 ML VIAL IVP ONE; -Pre Op ABX Message 1 EACH MISC MISCELLANE ONE; -SCOPOLAMINE 1.5MG/72HR PATCH TRANSDERM ONE; +ceFAZolin 3 GM in SODIUM CHLORIDE 0.9% 100 ML IVPB PRN
[2021-04-19] MEDS ORDERED: LACTATED RINGERS 1,000 ML IV SCH ×2 (07:51→14:45)
[2021-04-19] MEDS ORDERED: ONDANSETRON 4 MG/2 ML VIAL IVP ONE (07:51)
[2021-04-19] MEDS ORDERED: DEXAMETHASONE SOD PHOSPHATE 4 MG/ML 1 ML VIAL IV ONE (07:51)
[2021-04-19] MEDS ORDERED: MIDAZOLAM 2 MG/2 ML VIAL IV PRN (07:51)
[2021-04-19] MEDS ORDERED: HYDROmorphone 0.5 MG/0.5 ML SYRINGE IVP PRN ×2 (07:51→09:56)
[2021-04-19] MEDS ORDERED: LIDOCAINE 1% (10MG/ML) FOR IV START INTRADERMA ONE (08:19)
[2021-04-19] MEDS ORDERED: MIDAZOLAM 2 MG/2 ML VIAL IVP ONE (08:39)
[2021-04-19] MEDS ORDERED: NEOSTIGMINE 1 MG/ML 10 ML VIAL ONE (09:14)
[2021-04-19] MEDS ORDERED: LIDOCAINE 1% INJ 10MG/ML (20 ML MDV) ONE (09:14)
[2021-04-19] MEDS ORDERED: MORPHINE SULFATE (PF) 0.3 MG/0.3 ML SYR ONE (09:14)
[2021-04-19] MEDS ORDERED: PHENYLEPHRINE-0.9% NACL SYG 1,000 MCG/10 ML SYRINGE ONE (09:14)
[2021-04-19] MEDS ORDERED: PROPOFOL 10 MG/ML 20 ML VIAL IV ONE (09:14)
[2021-04-19] MEDS ORDERED: ROCURONIUM 10 MG/ML (5 ML VIAL) IV ONE (09:14)
[2021-04-19] MEDS ORDERED: KETAMINE 10 MG/ML 20 ML VIAL ONE (09:14)
[2021-04-19] MEDS ORDERED: GLYCOPYRROLATE 0.2 MG/ML 2 ML VIAL ONE (09:14)
[2021-04-19] MEDS ORDERED: fentaNYL (PF) 50 MCG/ML 2 ML AMP ONE (09:14)
[2021-04-19] MEDS ORDERED: MIDAZOLAM 2 MG/2 ML VIAL ONE (09:14)
[2021-04-19] MEDS ORDERED: KETOROLAC 15 MG/ML 1 ML VIAL ONE (09:14)
[2021-04-19] MEDS ORDERED: SUCCINYLCHOLINE CHLORIDE VIAL 200 MG/10 ML VIAL IV ONE (09:14)
[2021-04-19] MEDS ORDERED: HYDROmorphone (PF) 1 MG/ML ONE (09:14)
--- NOTE | 2021-04-19 09:15 | P.ANPRN ---
Procedure Note - Anesthesia - Epidural/Spinal Spinal Date of Procedure: 04/19/21 Procedure Start Time: 08:38 Procedure Stop Time: 09:00 Indication: Analgesia, Requested by Surgeon Sedation Type: Sedate with meaningful contact maintained Position: Sitting Needle Guage: 25, Other (see comment) (25 G 5 " spinal needle) Injectate: Other (Duramorph 0.2 mg plus Fentanyl 10 mcg) Blood Aspirated: No Pain Paresthesia on Injection Noted: No Events: Uneventful and Well Tolerated
[2021-04-19] MEDS ORDERED: NALOXONE 0.4 MG/ML 1 ML VIAL IV PRN (09:56)
[2021-04-19] MEDS ORDERED: NALBUPHINE 10 MG/ML (1 ML AMP) IV PRN (09:56)
[2021-04-19] MEDS ORDERED: LACTATED RINGERS 1,000 ML IV ONE ×3 (10:03→12:09)
--- NOTE | 2021-04-19 11:34 | P.OP ---
Date of Procedure: 04/19/21 Preoperative Diagnosis: 1. Fibroid uterus 2. Dysmenorrhea 3. Menorrhagia 4. Failed ablation Postoperative Diagnosis: 1. Fibroid uterus 2. Dysmenorrhea 3. Menorrhagia 4. Failed ablation 5. Endometrioma in the left adnexa Procedure(s) Performed: Total abdominal hysterectomy and left salpingectomy Anesthesia: ZENA Surgeon: Eleanor Adorno Iron Melter #1: Marcelo Hennessy Estimated Blood Loss (ml): 400 IV fluids (ml): 1,400 Urine output (ml): 100 Pathology: other (uterus, cervix, left fallopian tube) Condition: stable Disposition: PACU Operative Findings: Fibroid uterus, normal ovaries, endometrioma broken and the left adnexa well removing the left fallopian tube that did have a hydrosalpinx. Description of Procedure: Patient is taken the operating room and general anesthesia was obtained without difficulty. She is prepped and draped in normal sterile fashion dorsal supine position and a Bañuelos catheter was placed. Pfannenstiel skin incision was made the scalpel carried through to underlying layer fascia with the scalpel. Fascia was incised in midline and carried bilaterally with Castro scissors. Superior aspect of the fascial incision was grasped with Hudson clamps elevated and underlying rectus muscles dissected off with the Castro's. Attention was then turned to the inferior aspect of the same incision which in a similar fashion was grasped tented up and the underlying rectus muscle dissected off with the Mayos. The rectus muscles were the midline and the peritoneum was identified and entered bluntly in a digital manner. The incision was extended superiorly and inferiorly. The [place] retractor was placed and the bowels were packed away with moist laparotomy sponges. The cornuae of the uterus were clamped with Adilene clamps for retraction. A Jc clamp was used to clamp cut and suture ligate the round ligament on both sides. The left fallopian tube was then grasped with a [place] and clamped off with a Jc clamp cut and suture ligated. The broad ligament was clamped on the left than the right side and alternating steps to take it down to the level of the uterine arteries. The uterine arteries were then clamped cut and suture ligated. The bladder flap was then created and the bladder was pushed off the cervix. A stepwise fashion the Jc clamp was used to clamp cut and suture ligate down the cardinal ligaments and the uterosacral ligaments to the cervical vaginal junction. The uterus was then amputated off the vagina. The vaginal cuff was closed with 0 Vicryl in a running locked fashion. The pelvis was copiously irrigated and hemostasis was assured. The retractor and instruments and sponges were removed from the pelvis. Peritoneum was reapproximated using 2-0 Vicryl in a running fashion. The fascia was reapproximated with 0 Vicryl in a running fashion. The subcutaneous tissue was closed with 3-0 Vicryl in a running fashion. The skin was closed sharon. Patient tolerated procedure well. Sponge and instrument counts correct 2. She was taken to recovery in stable condition.
[2021-04-19] MEDS ORDERED: ZOLPIDEM 5 MG TAB PO PRN (13:00)
[2021-04-19] MEDS ORDERED: SIMETHICONE 80 MG CHEWABLE PO PRN (13:00)
[2021-04-19] MEDS ORDERED: Acetaminophen-Codeine 300-30mg TAB PO PRN ×2 (13:00)
[2021-04-19] MEDS ORDERED: diphenhydrAMINE 50 MG/ML 1 ML VIAL IVP PRN (13:00)
[2021-04-19] MEDS ORDERED: METOCLOPRAMIDE 5 MG/ML 2 ML VIAL IVP PRN (13:00)
[2021-04-19] MEDS ORDERED: HYDROmorphone 1 MG/ML 1 ML SYRINGE IVP PRN (13:00)
[2021-04-19] MEDS ORDERED: ONDANSETRON 4 MG/2 ML VIAL IVP PRN (13:00)
[2021-04-19] MEDS: SENNOSIDES-DOCUSATE SODIUM 1 EACH TAB PO SCH (20:59)
[2021-04-19] MEDS: KETOROLAC 30 MG/ML 1 ML VIAL IVP PRN (21:00)
[2021-04-20] MEDS: KETOROLAC 30 MG/ML 1 ML VIAL IVP PRN ×2 (03:02→08:57)
[2021-04-20 07:35] LABS: Basophils % (A) 0 %; Eosinophils # (A) 0.1 k/uL (0-0.7); Eosinophils % (A) 1 %; HCT 37.2 % (34.0-46.0); HGB 12.3 gm/dL (11.4-16.0); Lymphocytes # (A) 2.1 k/uL (1.0-4.8); Lymphocytes % (A) 23 %; MCH 31.5 pg (25.0-35.0); MCHC 32.9 g/dL (31.0-37.0); MCV 95.6 fL (80.0-100.0); Mean Platelet Volume 8.2; Monocytes # (A) 0.4 k/uL (0-1.0); Monocytes % (A) 4 %; Neutrophils # (A) 6.3 k/uL (1.3-7.7); Neutrophils % (A) 70 %; Platelet Count 252 k/uL (150-450); RBC 3.89 m/uL (3.80-5.40); RDW 14.6 % (11.5-15.5)
--- NOTE | 2021-04-20 08:21 | P.PN ---
Progress Note - Text Progress Note Date: 04/20/21 Status post total abdominal hysterectomy and left salpingectomy postop day #1 Patient seen and examined. Her pain is well-controlled. She is sitting up in a chair today. Her Bañuelos catheter was recently removed so we will see how she voids today. She is tolerating clear liquids. She denies nausea, vomiting, chest pain, shortness of breath or any calf pain. Vital signs stable Heart: Regular rate and rhythm Lungs: Clear to station bilaterally Abdomen: Soft, nontender, incision is clean, dry, intact with sharon Extremities: Negative Homans sign Assessment 1. Status post total abdominal hysterectomy and left salpingectomy postop day #1 Plan 1. Increase ambulation 2. Regular diet with flatus
[2021-04-20] MEDS: SENNOSIDES-DOCUSATE SODIUM 1 EACH TAB PO SCH ×2 (10:48→20:11)
--- NOTE | 2021-04-20 11:01 | P.PN ---
Progress Note - Text 04/20/21 648am 25-year-old female status post total abdominal hysterectomy, patient had a spinal Duramorph for postop pain control. Patient's evaluated, patient has a VAS of 0 with no complete of nausea vomiting or pruritus. Patient doing very well.
[2021-04-20] MEDS ORDERED: ACETAMINOPHEN TAB 325 MG TAB PO PRN (11:28)
[2021-04-20] MEDS: IBUPROFEN 600 MG TAB PO PRN (22:08)
[2021-04-21] MEDS: IBUPROFEN 600 MG TAB PO PRN (04:01)
[2021-04-21] MEDS: SENNOSIDES-DOCUSATE SODIUM 1 EACH TAB PO SCH (08:13)
[2021-04-21] MEDS ORDERED: IBUPROFEN 600 MG TAB PO SCH (09:00)
[2021-04-21 09:11] VITALS: BP 148/91; PULSE 90; RESP 18; TEMP 97.7
--- NOTE | 2021-04-21 11:21 | P.DS ---
Providers Date of admission: 04/19/21 07:07 Expected date of discharge: 04/21/21 Attending physician: Eleanor Adorno Primary care physician: Fatoumata Newport Hospital Course: Tiny is seen and evaluated postop day 2. She is ambulating, voiding and tolerating her diet. She is passing flatus. Her vital signs are stable and she is afebrile. It is noted she has mild increases in blood pressure 140s over 90s. She will follow up on Friday or of this week for stable removal and will have her blood pressure checked at that time. She denies any signs or symptoms due to the hypertension and is otherwise stable for discharge. Her heart is regular, lungs are clear, extremities are without pain. Abdomen is soft her incision is clean dry and intact. Bowel sounds are noted. Assessment postop day 2. Plan discharged home follow up later this week for staple removal. She requests nothing for pain to be discharged home on. Patient Condition at Discharge: Good Plan - Discharge Summary Discharge Rx Participant: Yes New Discharge Prescriptions: No Action Zinc Sulfate [Orazinc] 220 mg PO DAILY #30 cap Ascorbic Acid [Vitamin C] 1,000 mg PO DAILY #30 tab Cholecalciferol [Vitamin D3 (25 Mcg = 1000 Iu)] 50 mcg PO DAILY #30 tablet Discharge Medication List Ascorbic Acid [Vitamin C] 1,000 mg PO DAILY #30 tab 02/13/21 [Rx] Cholecalciferol [Vitamin D3 (25 Mcg = 1000 Iu)] 50 mcg PO DAILY #30 tablet 02/13/21 [Rx] Zinc Sulfate [Orazinc] 220 mg PO DAILY #30 cap 02/13/21 [Rx] Follow up Appointment(s)/Referral(s): Eleanor Adorno DO [Doctor of Osteopathic Medicine] - 3 Days Activity/Diet/Wound Care/Special Instructions: Heavy lifting, limit stairs and driving, and pelvic rest. If any high temperatures, heavy bleeding, or severe pain call my office. No tub baths for 2 weeks but showering is fine. Call on Friday for appointment to remove sharon later in the week. Discharge Disposition: HOME SELF-CARE
== END 2021-04-21 12:30 | disposition home or self-care (01) | DRG 743 ==
LOC: 2ORMAIN 07:07 → 4FBP 11:54
PROVIDERS: ADMIT Obstetrics & Gynecology; ATTEND Obstetrics & Gynecology
PROC: 0UTC0ZZ Resection of Cervix, Open Approach (ICD-10-PCS; 2021-04-19)
PROC: 0UT60ZZ Resection of Left Fallopian Tube, Open Approach (ICD-10-PCS; 2021-04-19)
PROC: 0UT90ZZ Resection of Uterus, Open Approach (ICD-10-PCS; principal; 2021-04-19 08:55)
DX: D25.9 Leiomyoma of uterus, unspecified (principal); N80.0 Endometriosis of uterus; N94.6 Dysmenorrhea, unspecified; Z20.822 Contact with and (suspected) exposure to COVID-19; N70.11 Chronic salpingitis; I10 Essential (primary) hypertension; Z87.01 Personal history of pneumonia (recurrent); Z88.0 Allergy status to penicillin; Z88.7 Allergy status to serum and vaccine
CPT/HCPCS: 85025; 86850; 86900; 86901; 87635; 88307

== ENCOUNTER → 2022-01-23 | Outpatient (CLI) | payer BC ==
[2022-01-23 15:14] LABS: Basophils # (A) 0.03 X 10*3/uL (0.00-0.10); Basophils % (A) 0.4 %; Eosinophils # (A) 0.27 X 10*3/uL (0.04-0.35); Eosinophils % (A) 3.6 %; HCT 45.7 % (37.2-46.3); HGB 14.6 g/dL (12.0-15.0); Immature Grans, Automated 0.1 %; Lymphocytes # (A) 1.76 X 10*3/uL (0.90-5.00); Lymphocytes % (A) 23.6 %; MCH 29.3 pg (27.0-32.0); MCHC 31.9 g/dL (32.0-37.0); MCV 91.8 fL (80.0-97.0); Mean Platelet Volume 11.2 fL (9.5-12.2); Monocytes # (A) 0.39 X 10*3/uL (0.20-1.00); Monocytes % (A) 5.2 %; NRBC Per 100 WBC 0 /100 WBCS (0.0-0.0); Neutrophils # (A) 5.01 X 10*3/uL (1.80-7.70); Neutrophils % (A) 67.1 %; Platelet Count 277 X 10*3/uL (140-440); RBC 4.98 X 10*6/uL (4.10-5.20); RDW 13.6 % (11.5-14.5); WBC 7.47 X 10*3/uL (4.50-10.00)
[2022-01-23 15:56] LABS: ALT 35 U/L (8-44); AST 31 U/L (13-35); African American GFR (CKD) 120.4 (60.0-200.0); Albumin 4.5 g/dL (3.8-4.9); Albumin/Globulin Ratio 1.45 (1.60-3.17); Alkaline Phosphatase 103 U/L (41-126); Blood Urea Nitrogen 12.6 mg/dL (9.0-27.0); Calcium 9.7 mg/dL (8.7-10.3); Chloride 106 mmol/L (96-109); Chol/HDL Ratio 2.92 Ratio; Globulin 3.1 g/dL (1.6-3.3); Glucose 122 mg/dL (70-110); LDL Cholesterol,Calculated 87.4 mg/dL (0.0-131.0); Non-African American GFR(CKD) 103.9 (60.0-200.0); Potassium 4.4 mmol/L (3.5-5.5); Sodium 144 mmol/L (135-145); Total Protein 7.6 g/dL (6.2-8.2)
== END | disposition home or self-care (01) ==
LOC: LABWHC1 09:30
PROVIDERS: ATTEND Physician Assistant Medical
DX: Z00.00 Encounter for general adult medical examination without abnormal findings (principal); Z13.220 Encounter for screening for lipoid disorders; Z13.228 Encounter for screening for other metabolic disorders; E66.9 Obesity, unspecified
CPT/HCPCS: 36415; 80053; 80061; 83036; 84439; 84443; 85025

== ENCOUNTER → 2022-06-28 | Outpatient (CLI) | payer BC | END | disposition home or self-care (01) | LOC: LABWHC1 08:35 | PROVIDERS: ATTEND Nurse Practitioner Family | DX: R73.03 Prediabetes (principal) | CPT/HCPCS: 36415; 83036 ==

== ENCOUNTER → 2022-07-17 | Outpatient (CLI) | payer BC ==
--- NOTE | 2022-07-18 07:10 | CA ---
Transthoracic Echo Report Name: Tiny Hernandez Age: 46 Gender: F : 1975 Exam Date: 07/17/2022 13:23 Exam Location: [place] [facility] Ht (in): 67 Wt (lb): 324 Ordering Physician: Fatoumata Lozano MD Attending/Referring Phys: Macarena Eastman [facility] Chief Optometry Service Isa Fields, LIZA Procedure CPT: Indications: R01.1 CARDIAC MURMUR, UNSPECIFIED Cardiac Hx: Technical Quality: Fair Contrast 1: Total Dose (mL): Contrast 2: Total Dose (mL): MEASUREMENTS (Male / Female) Normal Values 2D ECHO LV Diastolic Diameter PLAX 3.5 cm 4.2 - 5.9 / 3.9 - 5.3 cm LV Systolic Diameter PLAX 2.3 cm IVS Diastolic Thickness 1.3 cm 0.6 - 1.0 / 0.6 - 0.9 cm LVPW Diastolic Thickness 1.3 cm 0.6 - 1.0 / 0.6 - 0.9 cm LV Relative Wall Thickness 0.7 RV Internal Dim ED PLAX 2.7 cm LA Systolic Diameter LX 3.5 cm 3.0 - 4.0 / 2.7 - 3.8 cm LA Volume 44.5 cm??? 18 - 58 / 22 - 52 cm??? M-MODE Aortic Root Diameter MM 3.1 cm MV E Point Septal Separation 0.4 cm AV Cusp Separation MM 2.2 cm DOPPLER AV Peak Velocity 139.6 cm/s AV Peak Gradient 7.8 mmHg MV Area PHT 3.3 cm??? Mitral E Point Velocity 100.0 cm/s Mitral A Point Velocity 73.7 cm/s Mitral E to A Ratio 1.4 MV Deceleration Time 228.5 ms MV E' Velocity 10.2 cm/s Mitral E to MV E' Ratio 9.8 TR Peak Velocity 241.4 cm/s TR Peak Gradient 23.3 mmHg Right Ventricular Systolic Press 28.3 mmHg FINDINGS Left Ventricle Left ventricular ejection fraction is estimated at 55-60 %. Left ventricular cavity size normal. . Mildly increased septal wall thickness. Mildly increased posterior wall thickness. Right Ventricle Normal right ventricular size and function. Right Atrium Normal right atrial size. Left Atrium Normal left atrial size. Mitral Valve Structurally normal mitral valve. No mitral stenosis, or prolapse.trace to mild mitral regurgitation. Aortic Valve Trileaflet aortic valve. No aortic valve stenosis or regurgitation. Tricuspid Valve Structurally normal tricuspid valve. Mild tricuspid regurgitation. Pulmonic Valve Pulmonic valve not well visualized. . No pulmonic regurgitation. Pericardium Normal pericardium. No pericardial effusion. Aorta Normal size aortic root and proximal ascending aorta. CONCLUSIONS Technically difficult study. 1. Normal left ventricle size and systolic function with left ventricular hypertrophy 2. Mild tricuspid with trace to mild mitral regurgitation Previewed by: Dr. Graeme Polo MD (Electronically Signed) Final Date: 18 Jul 2022 07:09
== END | disposition home or self-care (01) ==
LOC: RADECHMAIN 13:13
PROVIDERS: ATTEND Family Medicine
DX: I08.1 Rheumatic disorders of both mitral and tricuspid valves (principal); R01.1 Cardiac murmur, unspecified
CPT/HCPCS: 93306

== ENCOUNTER → 2022-07-26 | Outpatient (CLI) | payer BC ==
--- NOTE | 2022-07-29 17:23 | MM ---
Reason for Exam: Screening (asymptomatic). Last mammogram was performed 2 year(s) and 0 month(s) ago. Patient History: Menarche at age 12. First Full-Term at age 17. Hysterectomy at age 45. Postmenopausal. 06/14/2014, Benign Core Biopsy on the left side. 11/02/2013, Core Biopsy on the Left side. 11/29/2020, US discontinued breast core RT on the right side. 06/21/2020, US discontinued breast bx RT on the right side. Risk Values: Emmie 5 year model risk: 1.5%. NCI Lifetime model risk: 10.7%. Prior Study Comparison: 05/31/2020 Right Diagnostic Mammogram, [facility]. 07/27/2020 Screening Mammogram, [facility]. 11/16/2020 Right Diagnostic Mammogram, [facility]. Tissue Density: There are scattered fibroglandular densities. Findings: Analyzed By CAD. Pattern appears symmetrical and stable. 8 core markers within the right breast. Multiple core markers are within the left breast. No suspicious groups of microcalcifications, spiculated or lobular masses, architectural distortion or other secondary signs of malignancy are mammographically apparent. Overall Assessment: Benign, BI-RAD 2 Management: Screening Mammogram of both breasts in 1 year. A negative mammogram report should not preclude additional follow up of suspicious palpable abnormalities. Patient should continue monthly self breast exam. A clinical breast exam by your physician is recommended on an annual basis and results should be correlated with mammographic findings. Electronically signed and approved by: Facundo Barron D.O. Radiologis
== END | disposition home or self-care (01) ==
LOC: RADMAMWWP 13:37
PROVIDERS: ATTEND Family Medicine
DX: Z12.31 Encounter for screening mammogram for malignant neoplasm of breast (principal); Z78.0 Asymptomatic menopausal state; Z98.890 Other specified postprocedural states
CPT/HCPCS: 77063; 77067

== ENCOUNTER → 2022-10-25 | Outpatient (CLI) | payer BC ==
[2022-10-25 15:55] LABS: Basophils # (A) 0.03 X 10*3/uL (0.00-0.10); Basophils % (A) 0.4 %; Eosinophils # (A) 0.19 X 10*3/uL (0.04-0.35); Eosinophils % (A) 2.7 %; HCT 43.7 % (37.2-46.3); Lymphocytes # (A) 1.66 X 10*3/uL (0.90-5.00); Lymphocytes % (A) 23.6 %; MCH 29.8 pg (27.0-32.0); Mean Platelet Volume 11.7 FL (9.5-12.2); Monocytes # (A) 0.38 X 10*3/uL (0.20-1.00); Monocytes % (A) 5.4 %; NRBC Per 100 WBC 0 X 10*3/uL (0.00-0.01); Neutrophils # (A) 4.76 X 10*3/uL (1.80-7.70); Neutrophils % (A) 67.8 %; Platelet Count 255 X 10*3/uL (140-440); RDW 13.2 % (11.5-14.5); WBC 7.03 X 10*3/uL (4.50-10.00)
[2022-10-25 16:31] LABS: ALT 22 U/L (8-44); AST 22 U/L (13-35); Albumin 4.2 d/dL (3.8-4.9); Alkaline Phosphatase 95 U/L (41-126); Blood Urea Nitrogen 11.9 mg/dL (9.0-27.0); Calcium 9.6 mg/dL (8.7-10.3); Carbon Dioxide 23.5 mmol/L (21.6-31.8); Chloride 105 mmol/L (96-109); Chol/HDL Ratio 2.95 Ratio; Globulin 2.8 d/dL (1.6-3.3); Glucose 138 mg/dL (70-110); LDL Cholesterol,Calculated 73.1 mg/dL (0.0-131.0); Potassium 4.2 mmol/L (3.5-5.5); Sodium 140 mmol/L (135-145); Total Bilirubin 0.5 mg/dL (0.3-1.2)
== END | disposition home or self-care (01) ==
LOC: LABWHC1 08:41
PROVIDERS: ATTEND Family Medicine
DX: Z13.220 Encounter for screening for lipoid disorders (principal); Z13.228 Encounter for screening for other metabolic disorders; R73.03 Prediabetes; R01.1 Cardiac murmur, unspecified
CPT/HCPCS: 36415; 80053; 80061; 82306; 83036; 84443; 85025

== ENCOUNTER → 2023-04-24 | Outpatient (CLI) | payer BC ==
[2023-04-24 17:20] LABS: ALT 21 U/L (8-44); AST 17 U/L (13-35); Albumin 4.3 g/dL (3.8-4.9); Albumin/Globulin Ratio 1.43 Ratio (1.60-3.17); Alkaline Phosphatase 88 U/L (41-126); BUN/Creat Ratio 19.14 Ratio (12.00-20.00); Blood Urea Nitrogen 13.4 mg/dL (9.0-27.0); Calcium 9.5 mg/dL (8.7-10.3); Carbon Dioxide 26.8 mmol/L (21.6-31.8); Chloride 101 mmol/L (96-109); Glucose 122 mg/dL (70-110); Potassium 4.3 mmol/L (3.5-5.5); Sodium 142 mmol/L (135-145); Total Bilirubin 0.5 mg/dL (0.3-1.2); Total Protein 7.3 g/dL (6.2-8.2)
[2023-04-24 18:21] LABS: Basophils # (A) 0.03 X 10*3/uL (0.00-0.10); Basophils % (A) 0.5 %; Eosinophils # (A) 0.16 X 10*3/uL (0.04-0.35); Eosinophils % (A) 2.6 %; HCT 43.4 % (37.2-46.3); HGB 14.1 g/dL (12.0-15.0); Lymphocytes # (A) 1.56 X 10*3/uL (0.90-5.00); Lymphocytes % (A) 25.7 %; MCH 29.7 pg (27.0-32.0); MCHC 32.5 g/dL (32.0-37.0); MCV 91.4 FL (80.0-97.0); Mean Platelet Volume 11.9 FL (9.5-12.2); Monocytes # (A) 0.35 X 10*3/uL (0.20-1.00); Monocytes % (A) 5.8 %; NRBC Per 100 WBC 0 X 10*3/uL (0.00-0.01); Neutrophils # (A) 3.96 X 10*3/uL (1.80-7.70); Neutrophils % (A) 65.2 %; Platelet Count 221 X 10*3/uL (140-440); RBC 4.75 X 10*6/uL (4.10-5.20); RDW 12.7 % (11.5-14.5); WBC 6.07 X 10*3/uL (4.50-10.00)
== END | disposition home or self-care (01) ==
LOC: LABWHC1 09:36
PROVIDERS: ATTEND Nurse Practitioner Family
DX: E55.9 Vitamin D deficiency, unspecified (principal); R73.03 Prediabetes
CPT/HCPCS: 36415; 80053; 82306; 83036; 85025

== ENCOUNTER → 2023-10-29 | Outpatient (CLI) | payer BC | END | disposition home or self-care (01) | LOC: LABWHC1 09:44 | PROVIDERS: ATTEND Nurse Practitioner Family | DX: Z13.220 Encounter for screening for lipoid disorders (principal); E55.9 Vitamin D deficiency, unspecified; R73.03 Prediabetes | CPT/HCPCS: 36415; 80053; 80061; 82306; 83036; 85025 ==

== ENCOUNTER → 2024-01-28 | Outpatient (CLI) | payer BC ==
--- NOTE | 2024-02-02 10:11 | MM ---
Reason for Exam: Screening (asymptomatic). Last mammogram was performed 1 year(s) and 6 month(s) ago. Patient History: Menarche at age 12. First Full-Term at age 17. Hysterectomy at age 45. Perimenopausal. 06/14/2014, Benign Core Biopsy on the left side. 11/02/2013, Core Biopsy on the Left side. 11/29/2020, US discontinued breast core RT on the right side. 06/21/2020, US discontinued breast bx RT on the right side. Risk Values: Emmie 5 year model risk: 1.3%. NCI Lifetime model risk: 10.2%. Prior Study Comparison: 12/07/2014 Left Diagnostic Mammogram, [facility]. 07/19/2015 Bilateral Diagnostic Mammogram, [facility]. 05/22/2020 Bilateral Screening Mammogram, [facility]. 05/31/2020 Right Diagnostic Mammogram, [facility]. 07/27/2020 Screening Mammogram, [facility]. 11/16/2020 Right Diagnostic Mammogram, [facility]. 07/26/2022 Bilateral MG 3D screening mammo w/cad, [facility]. Tissue Density: There are scattered areas of fibroglandular density. Findings: Analyzed By CAD. There is no suspicious group of microcalcifications or new suspicious mass in either breast. Overall Assessment: Benign, BI-RAD 2 Management: Screening Mammogram of both breasts in 1 year. . Patient should continue monthly self-breast exams. A clinical breast exam by your physician is recommended on an annual basis. This exam should not preclude additional follow-up of suspicious palpable abnormalities. Note on Emmie scores and lifetime risk: 1. A Emmie score greater than 3% is considered moderate risk. If this is the case, consider specialist referral to assess eligibility for a risk reducing agent. 2. If overall lifetime risk for the development of breast cancer is 20% or higher, the patient may qualify for future screening with alternating mammogram and breast MRI. [facility], , 02/02/2024 10:08 AM. Electronically signed and approved by: Christophe Alvares M.D. Radiologis
== END | disposition home or self-care (01) ==
LOC: RADMAMWWP 09:37
PROVIDERS: ATTEND Family Medicine
DX: Z12.31 Encounter for screening mammogram for malignant neoplasm of breast (principal); R92.323 Mammographic fibroglandular density, bilateral breasts; Z78.0 Asymptomatic menopausal state
CPT/HCPCS: 77063; 77067